=== PATIENT | male | born 1940 | race Caucasian/White ===

== ENCOUNTER → 2016-06-13 | Outpatient (CLI) | payer MEDICARE, OTHER ==
[~2016-06-13] MED LIST: ATOR10TA82 PO; INSUINJ4 SQ; LISI40TA PO; PANT40TA PO
[2016-06-13 11:11] LABS: BASO % 0.3 %; BASO ABS # 0.03 K/uL (0-0.2); COMPLETE YES; EOS % 1.1 %; HEMATOCRIT 38.2 % (42-52); IG% 0.3 %; LYMPH % 13.1 %; MEAN CORPUSCULAR HEMOGLOBIN 31.1 pg (25-34); MEAN CORPUSCULAR HGB CONC 35.3 g/dl (32-36); MEAN PLATELET VOLUME 10.1 fL (7.4-10.4); MONO % 9.3 %; NEUT % 75.9 %; PLATELET COUNT 231 K/uL (130-400); RED BLOOD COUNT 4.34 M/uL (4.7-6.1); WHITE BLOOD COUNT 9.92 K/uL (4.8-10.8)
[2016-06-13 11:29] LABS: ESTIMATED AVERAGE GLUCOSE 197 mg/dl; HA1C FLAG Normal (Normal)
[2016-06-13 11:44] LABS: ALT/SGPT 55 U/L (12-78); BLOOD UREA NITROGEN 23 mg/dl (7-18); BUN/CREATININE RATIO 13.5 (10-20); CALCIUM 8.7 mg/dl (8.5-10.1); CARBON DIOXIDE 24 mmol/L (21-32); CHLORIDE 105 mmol/L (98-107); CHOLESTEROL 92 mg/dl (0-200); GLUCOSE 97 mg/dl (70-99); MAGNESIUM 2.1 mg/dl (1.8-2.4); POTASSIUM 4.3 mmol/L (3.5-5.1); SODIUM 138 mmol/L (136-145)
[2016-06-13 11:47] LABS: ALB/GLOB RATIO 1.1 (0.9-2); ALKALINE PHOSPHATASE 62 U/L (45-117); AST/SGOT 37 U/L (15-37); HDL CHOLESTEROL 45 mg/dl; LDL CHOLESTEROL CALCULATED 23 mg/dl; PHOSPHORUS 3.8 mg/dl (2.5-4.9); TRIGLYCERIDES 122 mg/dl (0-150); VERY LOW DENSITY LIPOPROT CALC 24 mg/dl
== END | disposition home or self-care (01) ==
LOC: C.LAB1850 10:16
PROVIDERS: ATTEND Internal Medicine Geriatric Medicine
DX: I12.9 Hypertensive chronic kidney disease with stage 1 through stage 4 chronic kidney disease, or unspecified chronic kidney disease (principal); E11.29 Type 2 diabetes mellitus with other diabetic kidney complication; E55.9 Vitamin D deficiency, unspecified; N18.3 Chronic kidney disease, stage 3 (moderate)

== ENCOUNTER → 2016-07-15 | Outpatient (CLI) | payer OTHER ==
[~2016-07-15] MED LIST changes: -ATOR10TA82 PO; +ATOR10TA88 PO
[2016-07-15 18:15] LABS: BLOOD UREA NITROGEN 24 mg/dl (7-18); BUN/CREATININE RATIO 13.8 (10-20); CALCIUM 8.7 mg/dl (8.5-10.1); CARBON DIOXIDE 24 mmol/L (21-32); CHLORIDE 103 mmol/L (98-107); GLUCOSE 236 mg/dl (70-99); PHOSPHORUS 3.4 mg/dl (2.5-4.9); POTASSIUM 4.7 mmol/L (3.5-5.1); SODIUM 137 mmol/L (136-145)
== END | disposition home or self-care (01) ==
LOC: C.LABPBG 13:42
PROVIDERS: ATTEND Internal Medicine Geriatric Medicine
DX: N18.3 Chronic kidney disease, stage 3 (moderate) (principal)

== ENCOUNTER → 2017-06-19 | Outpatient (CLI) | payer OTHER ==
[~2017-06-19] MED LIST changes: +ATOR10TA82 PO; -ATOR10TA88 PO
[2017-06-19 17:46] LABS: BASO % 0.3 %; BASO ABS # 0.03 K/uL (0-0.2); EOS % 1.8 %; EOS ABS # 0.19 K/uL (0-0.5); HEMATOCRIT 39.8 % (42-52); HEMOGLOBIN 13.2 g/dL (14.0-18.0); IG# 0.05 K/uL (0.00-0.02); LYMPH % 14.9 %; LYMPH ABS # 1.61 K/uL (1.2-3.4); MEAN CELL VOLUME 89.8 fL (80-100); MEAN CORPUSCULAR HEMOGLOBIN 29.8 pg (25-34); MEAN CORPUSCULAR HGB CONC 33.2 g/dl (32-36); MEAN PLATELET VOLUME 10.3 fL (7.4-10.4); MONO % 7.8 %; MONO ABS # 0.84 K/uL (0.11-0.59); NEUT % 74.7 %; NEUT ABS # 8.09 K/uL (1.4-6.5); PLATELET COUNT 251 K/uL (130-400); RED CELL DISTRIBUTION WIDTH CV 13.7 % (11.5-14.5); RED CELL DISTRIBUTION WIDTH SD 44.8 fL (36.4-46.3); WHITE BLOOD COUNT 10.81 K/uL (4.8-10.8)
[2017-06-19 18:06] LABS: ALBUMIN 3.7 gm/dl (3.4-5.0); ALT/SGPT 47 U/L (12-78); AST/SGOT 37 U/L (15-37); BLOOD UREA NITROGEN 28 mg/dl (7-18); CALCIUM 8.7 mg/dl (8.5-10.1); CARBON DIOXIDE 26 mmol/L (21-32); CREATININE 1.83 mg/dl (0.60-1.40); GLUCOSE 234 mg/dl (70-99); POTASSIUM 4.9 mmol/L (3.5-5.1); SODIUM 132 mmol/L (136-145)
[2017-06-19 18:08] LABS: ALKALINE PHOSPHATASE 70 U/L (45-117); TOTAL PROTEIN 7.9 gm/dl (6.4-8.2)
[2017-06-20 07:04] LABS: HEMOGLOBIN A1C 7.3 % (4.5-5.6)
== END | disposition home or self-care (01) ==
LOC: C.LABPBG 12:11
PROVIDERS: ATTEND Internal Medicine Geriatric Medicine
DX: I12.9 Hypertensive chronic kidney disease with stage 1 through stage 4 chronic kidney disease, or unspecified chronic kidney disease (principal); D64.9 Anemia, unspecified; E11.29 Type 2 diabetes mellitus with other diabetic kidney complication; G31.84 Mild cognitive impairment of uncertain or unknown etiology; N18.3 Chronic kidney disease, stage 3 (moderate)

== ENCOUNTER 2020-11-09 09:52 | Inpatient (IN) ==
[2020-11-09] MEDS ORDERED: SIMETHICONE 80 MG CHEW PO STA (10:39)
[2020-11-09 11:05] LABS: Basophils # (auto) 0.01 K/uL (0-0.2); Basophils % (auto) 0.1 %; Hematocrit (blood only) 40.4 % (42-52); Immature Granulocytes # (auto) 0.04 K/uL (0.00-0.02); Immature Granulocytes % (auto) 0.2 %; Lymphocytes # (auto) 1.07 K/uL (1.2-3.4); Lymphocytes % (auto) 6.2 %; Mean Corpuscular Hemoglobin 31.2 pg (25-34); Mean Corpuscular Hgb Conc 34.7 g/dL (32-36); Mean Platelet Volume 9.7 fL (7.4-10.4); Monocytes # (auto) 0.68 K/uL (0.11-0.59); Monocytes % (auto) 3.9 %; Neutrophils # (auto) 15.57 K/uL (1.4-6.5); Neutrophils % (auto) 89.6 %; Platelet Count 242 K/uL (130-400); RDW Coefficient of Variation 12.8 % (11.5-14.5); RDW Standard Deviation 41.8 fL (36.4-46.3); Red Blood Count 4.49 M/uL (4.7-6.1); White Blood Count 17.37 K/uL (4.8-10.8)
[2020-11-09 11:22] LABS: Alanine Aminotransferase 35 U/L (12-78); Albumin Level 4.1 gm/dl (3.4-5.0); Aspartate Aminotransferase 31 U/L (15-37); BUN Creatinine Ratio 13.9 (10-20); Blood Urea Nitrogen 25 mg/dl (7-18); Carbon Dioxide 29 mmol/L (21-32); Chloride 97 mmol/L (98-107); Creatinine Clr Calc Pharmacy 29.2 ml/min; Est GFR (African American) 40.3 ml/min; Est GFR (Non-African American) 34.8 ml/min; Glucose 231 mg/dl (70-99); Lipase 153 U/L (73-393); Potassium 4.5 mmol/L (3.5-5.1); Sodium 133 mmol/L (136-145)
[2020-11-09 11:27] LABS: Alkaline Phosphatase 74 U/L (45-117); Total Protein 8.1 gm/dl (6.4-8.2); Troponin I < 0.015 ng/ml (0-0.045)
--- NOTE | 2020-11-09 11:31 | CT Scan Report ---
CT OF THE ABDOMEN AND PELVIS WITHOUT CONTRAST CLINICAL HISTORY: abd pain, distention - h/o small bowel stricture COMPARISON STUDY: CT of the abdomen and pelvis August 23, 2015. Small bowel follow-through August 25, 2015. TECHNIQUE: Axial images of the abdomen and pelvis were obtained without IV contrast. Images were revi ewed in the axial, sagittal, and coronal planes. Automated exposure control was utilized for the meena dy. A dose lowering technique was utilized adhering to the principles of ALARA. FINDINGS: No pneumatosis, free air or portal venous gas is present. The stomach is fluid-filled and m oderately distended. Evaluation of the abdomen and pelvis is suboptimal on this unenhanced exam. Unen hanced images of the liver, spleen, adrenal glands and pancreas are unremarkable. There is no biliary or pancreatic ductal dilatation. The majority of the small bowel is moderately dilated and fluid-aditi led. Note is made of a transition point within the distal ileum, within the right lower quadrant on a xial image 308 of 461. Just proximal to the transition point, there is an apparent 1.7 cm slightly hy perdense intraluminal focus. Apparent wall thickening of the slightly more upstream small bowel is pr obably due to peristalsis. There is trace interloop ascites. The appendix is unremarkable. No lymphad enopathy is present. No acute fracture or suspicious lesion is identified within the visualized skele bradley structures. There is no hydronephrosis. Water attenuation left renal lesions favor cysts. IMPRESSION: 1. Findings consistent with a small bowel obstruction with transition point within the distal ileum. Apparent 1.7 cm intraluminal hyperdense focus just proximal to the transition point may reflect stool or other bowel contents. Trace ascites. 2. Fluid-filled distended stomach. ACT 112: Negative or not required by law. Electronically signed by: Peewee Villegas M.D. 11/09/2020 11:30 AM
--- NOTE | 2020-11-09 11:43 | Communication Note ---
Date of Service: November 09, 2020 This patient was seen in concert with Dr. Navarrete and we discussed and agreed upon the history, physical, assessment, and plan. See attending's note for ct perdomo. Resident Activity Tracking Resident Involvement: Resident Care Provided Care Provided: Adult ED
--- NOTE | 2020-11-09 12:16 | Emergency Department Note ---
History of Present Illness General Chief complaint: GI Assessment Stated complaint: PROBABLE BOWEL OBSTRUCTION,HX OF,BLOATING,VOM,PAIN Time Seen by Provider: 11/09/20 10:06 Source: patient Mode of arrival: EMS Limitations: no limitations History of Present Illness Provider complaint: Abdominal pain Maximum Pain Intensity: 8 This is an 80-year-old male who presents to the ED with a chief complaint of abdominal distention as well as some diffuse achiness in his abdomen. He reports nausea and vomiting x1 yesterday. He is passing some gas. His last bowel movement was reportedly this morning. 2 days ago he had similar symptoms and felt a little better after a bowel movement. He states that he has been eating okay up until the last 24 hours. He did try some milk of magnesia last night which did not help. He does report a history of bowel obstruction. No previous abdominal surgeries. Home Medications Medication Instructions Recorded Confirmed Type blood-glucose meter #1 ea 02/15/19 07/28/20 History blood sugar diagnostic #100 ea 07/05/19 07/28/20 Rx pen needle, diabetic 31 gauge x #90 ea 08/30/19 07/28/20 Rx 5/16" pen needle, diabetic 32 gauge x #300 ea 08/31/19 07/28/20 Rx 5/32" atorvastatin 10 mg PO QAM 11/09/20 11/09/20 History cholecalciferol (vitamin D3) 4,000 units PO QAM 11/09/20 11/09/20 History insulin glargine [Lantus Solostar 40 unit SQ QAM 11/09/20 11/09/20 History U-100 Insulin] lisinopril 40 mg PO QAM 11/09/20 11/09/20 History magnesium hydroxide [Milk of 5 ml PO DAILY PRN 11/09/20 11/09/20 History Magnesia] multivitamin 1 tab PO QAM 11/09/20 11/09/20 History Allergies Allergy/AdvReac Type Severity Reaction Status Date / Time No Known Drug Allergies Allergy Verified 11/09/20 11:10 Past Med/Surg History Medical History (Updated 11/09/20 @ 12:18 by Terrell Navarrete DO) Anemia Benign enlargement of prostate Chronic kidney disease, stage 3 (moderate) Chronic osteoarthritis Diabetes mellitus with renal complications Diverticula of colon Dyslipidemia History of duodenal ulcer Hypertension Internal hemorrhoid Mild cognitive impairment Pulmonary nodules Tubular adenoma of colon Type 2 diabetes mellitus Vitamin D deficiency Surgical History H/O excision of mass (03/2016) endoscopy mucosal resection 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) Status post right knee replacement (2008) Family History Uncle Bleeding ulcer Mother Bleeding ulcer Hypertension Brother Drowned Family/Other Colon cancer Father Drowned Denies family history of Ovarian cancer Prostate cancer Myocardial infarction Breast cancer Colorectal cancer Social History Smoking Status: Former smoker Tobacco Type: Cigarettes Age Started Using Tobacco: 19; Age Quit Using Tobacco: 26; packs per day: 1; Second Hand Exposure: No; Hx Alcohol Use: No Hx Substance Use: No Preferred Language: [place] Communication Ability: Effective Visual Impairment: No Limitations Hearing Ability: Normal Cleaning Specialist Required: No Beliefs That Will Affect Care: None marital status: Current Living Situation: Spouse current occupational status: retired How many Children do You have: 2 Feels Safe at Home: Yes Childhood Exposure to Second-Hand Smoke: No caffeine: No (Tea x 3-4 per day. Cold tea 2-3 a day. ) during the past year weight has: remained stable Dental Care, Regularly: No Physical Activity Frequency: 3-4 Times per Week Physical Activity Frequency Comment: walking Seatbelt Use: always Sunscreen Use: No Review of Systems A total of 10 systems reviewed and were otherwise negative Physical Exam Vital Signs Vital Signs - 24 hr 11/09/20 10:05 11/09/20 10:19 11/09/20 11:14 Temperature 36.8 C Temperature Source Temporal Artery Scan Pulse Rate 87 74 70 Pulse Rate from SpO2 Sensor 74 70 Pulse Rhythm Regular Respiratory Rate 18 14 21 Respiratory Effort / Characteristics Non-Labored Spontaneous Respiratory Depth Normal Respiratory Pattern Regular Blood Pressure 162/77 H 161/79 H 158/81 H Blood Pressure Mean 105 106 106 Blood Pressure Position Sitting Pulse Oximetry 98 98 98 Oxygen Delivery Method Room Air Room Air Sepsis Recent Fever Within 48 Hours No Sepsis New/Unexplained Change in Mental Status N/A Sepsis Action Taken by Nursing No Action Required CONSTITUTIONAL/VITAL SIGNS: Reviewed / noted above. GENERAL: Non-toxic in appearance. INTEGUMENTARY: Warm, dry, and Dasher. HEAD: Normocephalic. EYES: without scleral icterus or trauma. ENT/OROPHARYNX: clear and moist. LYMPHADENOPATHY/NECK: Is supple without lymphadenopathy or meningismus. RESPIRATORY: Lungs clear and equal. CARDIOVASCULAR: Regular rate and rhythm. GI/ABDOMEN: Soft and distended and mildly tender and tympanic. Diminished bowel sounds. EXTREMITIES: Warm and well perfused. BACK: No CVA tenderness. NEUROLOGICAL: Intact without focal deficits. PSYCHIATRIC: normal affect. MUSCULOSKELETAL: Normally developed with good muscle tone. TRIAGE NURSING DOCUMENTATION REVIEWED. Course Administered Medications Discontinued Medications Simethicone (Simethicone 80 Mg Chew) 80 mg PO NOW STA Stop: 11/09/20 10:40 Last Admin: 11/09/20 11:20 Dose: 80 mg Documented by: [id number] Medical Decision Making Differential Diagnosis Differential considered: pancreatitis, hepatitis, acute cholecystitis, AAA, UTI, pyelonephritis, kidney stones, appendicitis, diverticulitis, shingles, bowel obstruction, mesenteric ischemia, intussusception,hernia, testicular torsion. Medical Records Attestation: I reviewed the patient's medical records. Home Medications Current Medication List: was personally reviewed by me Laboratory Data Attestation: I reviewed the patient's lab results. Result diagrams: 11/09/20 10:57 11/09/20 10:57 Lab Results 11/09/20 11/09/20 Range/Units 10:57 10:57 WBC 17.37 H (4.8-10.8) K/uL RBC 4.49 L (4.7-6.1) M/uL Hgb 14.0 (14.0-18.0) g/dL Hct 40.4 L (42-52) % MCV 90.0 (80-100) fL MCH 31.2 (25-34) pg MCHC 34.7 (32-36) g/dL RDW Std Deviation 41.8 (36.4-46.3) fL RDW Coeff of Patricia 12.8 (11.5-14.5) % Plt Count 242 (130-400) K/uL MPV 9.7 (7.4-10.4) fL Immature Gran % (Auto) 0.2 % Neut % (Auto) 89.6 % Lymph % (Auto) 6.2 % Ransom % (Auto) 3.9 % Eos % (Auto) 0.0 % Baso % (Auto) 0.1 % Neut # (Auto) 15.57 H (1.4-6.5) K/uL Lymph # (Auto) 1.07 L (1.2-3.4) K/uL Ransom # (Auto) 0.68 H (0.11-0.59) K/uL Eos # (Auto) 0.00 (0-0.5) K/uL Baso # (Auto) 0.01 (0-0.2) K/uL Immature Gran # (Auto) 0.04 H (0.00-0.02) K/uL Sodium 133 L (136-145) mmol/L Potassium 4.5 (3.5-5.1) mmol/L Chloride 97 L (98-107) mmol/L Carbon Dioxide 29 (21-32) mmol/L Anion Gap 7.0 (3-11) BUN 25 H (7-18) mg/dl Creatinine 1.79 H (0.6-1.4) mg/dl Est Cr Clr Drug Dosing 29.2 ml/min Est GFR ( Amer) 40.3 ml/min Est GFR (Non-Af Amer) 34.8 ml/min BUN/Creatinine Ratio 13.9 (10-20) Glucose 231 H (70-99) mg/dl Calcium 9.0 (8.5-10.1) mg/dl Total Bilirubin 1.0 (0.2-1) mg/dl AST 31 (15-37) U/L ALT 35 (12-78) U/L Alkaline Phosphatase 74 (45-117) U/L Troponin I < 0.015 (0-0.045) ng/ml Total Protein 8.1 (6.4-8.2) gm/dl Albumin 4.1 (3.4-5.0) gm/dl Globulin 4.0 (2.5-4.0) gm/dl Albumin/Globulin Ratio 1.0 (0.9-2) Lipase 153 (73-393) U/L Imaging Data Radiologist's Impression: Abdomen/Pelvis CT 11/09/20 10:39 CT OF THE ABDOMEN AND PELVIS WITHOUT CONTRAST CLINICAL HISTORY: abd pain, distention - h/o small bowel stricture COMPARISON STUDY: CT of the abdomen and pelvis August 23, 2015. Small bowel follow-through August 25, 2015. TECHNIQUE: Axial images of the abdomen and pelvis were obtained without IV cont rast. Images were reviewed in the axial, sagittal, and coronal planes. Automated exposure control was utilized for the study. A dose lowering technique was utilized adhering to the principles of ALARA. FINDINGS: No pneumatosis, free air or portal venous gas is present. The stomach is fluid-filled and moderately distended. Evaluation of the abdomen and pelvis is suboptimal on this unenhanced exam. Unenhanced images of the liver, spleen, adrenal glands and pancreas are unremarkable. There is no biliary or pancreatic ductal dilatation. The majority of the small bowel is moderately dilated and fluid-filled. Note is made of a transition point within the distal ileum, within the right lower quadrant on axial image 308 of 461. Just proximal to the transition point, there is an apparent 1.7 cm slightly hyperdense intraluminal focus. Apparent wall thickening of the slightly more upstream small bowel is probably due to peristalsis. There is trace interloop ascites. The appendix is unremarkable. No lymphadenopathy is present. No acute fracture or suspicious lesion is identified within the visualized skeletal structures. There is no hydronephrosis. Water attenuation left renal lesions favor cysts. IMPRESSION: 1. Findings consistent with a small bowel obstruction with transition point within the distal ileum. Apparent 1.7 cm intraluminal hyperdense focus just proximal to the transition point may reflect stool or other bowel contents. Trace ascites. 2. Fluid-filled distended stomach. ACT 112: Negative or not required by law. Electronically signed by: Peewee Villegas M.D. 11/09/2020 11:30 AM MDM Narrative Patient presents with abdominal distention abdominal discomfort as detailed above. His white blood cell count is 17. BUN is 25 and creatinine is 1.79. Glucose 231. Lipase was negative. The CT scan shows a small bowel obstruction as detailed above. I did speak with Dr. Leggett from general surgery. He will see the patient in consultation. The patient will be admitted to the medicine service. An NG tube was ordered. The patient was given simethicone 80 mg p.o. prior to the x-ray. Impression & Plan SBO (small bowel obstruction) Discharge Plan Visit Data Chief Complaint: GI Assessment Stated Complaint: PROBABLE BOWEL OBSTRUCTION,HX OF,BLOATING,VOM,PAIN ED Provider: Terrell Navarrete ED Midlevel Provider: Jatinder Nation Discharge Problem: SBO (small bowel obstruction) Patient Disposition: Being Evaluated by Hospitalist Forms Stand Alone Forms: Sheryl FigCard Prescriptions Prescriptions: No Action (DME) pen needle, diabetic [Pen Needle] 31 gauge x 5/16" needle See Dose Instructions .ROUTE .MEDSUPPLY Qty: 90 RF: 1 (DME) pen needle, diabetic [BD Ultra-Fine Sheron Pen Needle] 32 gauge x 5/32" needle See Rx Instructions .ROUTE .MEDSUPPLY Qty: 300 RF: 1 (DME) blood-glucose meter [OneTouch Ultra2 Meter] kit See Dose Instructions .ROUTE .MEDSUPPLY Qty: 1 RF: 0 (DME) OneTouch Ultra Blue Test Strip Strip See Dose Instructions .ROUTE .MEDSUPPLY Qty: 100 RF: 5 magnesium hydroxide [Milk of Magnesia] 400 mg/5 mL Suspension 5 ml PO DAILY PRN (Reason: gastric upset) RF: 0 multivitamin tablet 1 tab PO QAM RF: 0 atorvastatin 10 mg tablet 10 mg PO QAM RF: 0 lisinopril 40 mg tablet 40 mg PO QAM RF: 0 Lantus Solostar U-100 Insulin 100 unit/mL (3 mL) insulin pen 40 unit SQ QAM RF: 0 cholecalciferol (vitamin D3) 2,000 unit capsule 4,000 units PO QAM RF: 0 Referrals Referrals: Jamila Alfred DO [Primary Care Provider] -
[2020-11-09] MEDS ORDERED: LORazepam 0.5 MG/1 ML VIAL IV STA (12:17)
--- NOTE | 2020-11-09 12:54 | History & Physical Report ---
Date of Service November 09, 2020 Assessment & Plan (1) SBO (small bowel obstruction): Small bowel obstruction- Most recent was in February 2019, which resolved spontaneously This was likely brought on by dietary intake of corn and beans and inadequate hydration Transition point ND distal ileum Continue NG tube to low intermittent suction Zofran 4 mg IV every 6 hours as needed Famotidine 20 mg IV every 12 hours Zosyn 3.375 mg IV every 8 hours Consult general surgery Dr. Leggett Present on Admission?: Yes (2) Dyslipidemia: Hold atorvastatin Present on Admission?: Yes (3) Diabetes mellitus with renal complications: Reduce insulin glargine from 40 to 20 units subcu every morning Placed on Accu-Cheks before meals and at bedtime with NovoLog coverage per scale Check hemoglobin A1c Present on Admission?: Yes (4) Benign enlargement of prostate: Not on any outpatient medications, will need to follow urine output while being hydrated with IV fluids Present on Admission?: Yes (5) Hypertension: Hold lisinopril Present on Admission?: Yes History of Present Illness Chief Complaint: The patient presents to the emergency department with 2 days of worsening abdominal pain and distention, similar to his most recent small bowel obstruction in February 2019 Primary Care Provider: Jamila Alfred DO The patient is a 80-year-old male past medical history including small bowel obstruction, dyslipidemia, anemia, BPH, chronic osteoarthritis, diabetes mellitus with renal complications, duodenal ulcer, hypertension, mild cognitive impairment, pulmonary nodules, CKD stage III, diabetes mellitus type 2 and vitamin D deficiency. He presents with symptoms as noted above. Work-up in the emergency department included a CT scan of abdomen pelvis which showed a small bowel obstruction with transition point in the distal ileum, along with fluid- filled distended stomach. Patient had NG tube to low intermittent suction placed in the ED, with some improvement in symptoms. From a dietary perspective, patient had a large amount of corn a few days ago, and ate beans the following day Allergies Allergy/AdvReac Type Severity Reaction Status Date / Time No Known Drug Allergies Allergy Verified 11/09/20 11:10 Home Medications Medication Instructions Recorded Confirmed Type blood-glucose meter #1 ea 02/15/19 07/28/20 History blood sugar diagnostic #100 ea 07/05/19 07/28/20 Rx pen needle, diabetic 31 gauge x #90 ea 08/30/19 07/28/20 Rx 5/16" pen needle, diabetic 32 gauge x #300 ea 08/31/19 07/28/20 Rx 532" atorvastatin 10 mg PO QAM 11/09/20 11/09/20 History cholecalciferol (vitamin D3) 4,000 units PO QAM 11/09/20 11/09/20 History insulin glargine [Lantus Solostar 40 unit SQ QAM 11/09/20 11/09/20 History U-100 Insulin] lisinopril 40 mg PO QAM 11/09/20 11/09/20 History magnesium hydroxide [Milk of 5 ml PO DAILY PRN 11/09/20 11/09/20 History Magnesia] multivitamin 1 tab PO QAM 11/09/20 11/09/20 History Past Med/Surg History Medical History (Updated 11/09/20 @ 12:18 by Terrell Navarrete DO) Anemia Benign enlargement of prostate Chronic kidney disease, stage 3 (moderate) Chronic osteoarthritis Diabetes mellitus with renal complications Diverticula of colon Dyslipidemia History of duodenal ulcer Hypertension Internal hemorrhoid Mild cognitive impairment Pulmonary nodules Tubular adenoma of colon Type 2 diabetes mellitus Vitamin D deficiency Surgical History H/O excision of mass (03/2016) endoscopy mucosal resection 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) Status post right knee replacement (2008) Family History Uncle Bleeding ulcer Mother Bleeding ulcer Hypertension Brother Drowned Family/Other Colon cancer Father Drowned Denies family history of Ovarian cancer Prostate cancer Myocardial infarction Breast cancer Colorectal cancer Social History Smoking Status: Former smoker Tobacco Type: Cigarettes Age Started Using Tobacco: 19; Age Quit Using Tobacco: 26; packs per day: 1; Second Hand Exposure: No; Hx Alcohol Use: No Hx Substance Use: No Preferred Language: Tongan Communication Ability: Effective Visual Impairment: No Limitations Hearing Ability: Normal Exhibit Cleaner Required: No Beliefs That Will Affect Care: None marital status: Current Living Situation: Spouse current occupational status: retired How many Children do You have: 2 Feels Safe at Home: Yes Childhood Exposure to Second-Hand Smoke: No caffeine: No (Tea x 3-4 per day. Cold tea 2-3 a day. ) during the past year weight has: remained stable Dental Care, Regularly: No Physical Activity Frequency: 3-4 Times per Week Physical Activity Frequency Comment: walking Seatbelt Use: always Sunscreen Use: No Review of Systems Review of Systems: The patient denies chest pain, palpitations, shortness of breath, dyspnea on exertion, cough, lower extremity swelling, sore throat, fevers, chills, sweats, vomiting, diarrhea, blood in urine or stool, dysuria, urinary frequency or urgency, lightheadedness, dizziness, headache, memory loss, loss of consciousness, rash, abnormal bruising or bleeding, imbalance, focal or generalized weakness, numbness or tingling in arms or legs, generalized arthralgias or myalgias, back or neck pain, or night sweats. The review of systems is otherwise negative other than for that already noted above, and at least 10 systems have been reviewed. Physical Exam Physical Exam: The patient is awake, alert and oriented 3, well developed and well nourished, NGT to LIS draining brown fluid, sitting upright in bed and in no acute distress. HEENT--PERRL, EOMI, mucous membranes and oropharynx dry. Neck--supple. No JVD. No bruits. Thyroid normal, trachea midline, no adenopathy. Heart--normal S1 and S2. No murmurs, rubs or gallops. Lungs--clear bilaterally, no respiratory distress, no accessory muscle use. Abdomen--decreased bowel sounds. Moderately distended and nontender. Extremities--no cyanosis or clubbing. No edema. Dermatologic--normal skin turgor, normal color, no abnormal lymph nodes, no rash. Neurologic--cranial nerves II through XII grossly intact. Rheumatologic--normal range of motion. Psychiatric--normal affect. Results & Data Results & Data ([facility]) Vital Signs (Past 12 Hours) Vital Signs Temp Pulse Resp BP Pulse Ox 11/09/20 11:14 70 21 158/81 H 98 11/09/20 10:19 74 14 161/79 H 98 11/09/20 10:05 98.2 F 87 18 162/77 H 98 Laboratory Results Laboratory Results WBC 17.37 K/uL (4.8-10.8) H 11/09/20 10:57 RBC 4.49 M/uL (4.7-6.1) L 11/09/20 10:57 Hgb 14.0 g/dL (14.0-18.0) 11/09/20 10:57 Hct 40.4 % (42-52) L 11/09/20 10:57 MCV 90.0 fL (80-100) 11/09/20 10:57 MCH 31.2 pg (25-34) 11/09/20 10:57 MCHC 34.7 g/dL (32-36) 11/09/20 10:57 RDW Std Deviation 41.8 fL (36.4-46.3) 11/09/20 10:57 RDW Coeff of Patricia 12.8 % (11.5-14.5) 11/09/20 10:57 Plt Count 242 K/uL (130-400) 11/09/20 10:57 MPV 9.7 fL (7.4-10.4) 11/09/20 10:57 Immature Gran % (Auto) 0.2 % 11/09/20 10:57 Neut % (Auto) 89.6 % 11/09/20 10:57 Lymph % (Auto) 6.2 % 11/09/20 10:57 [place]oula % (Auto) 3.9 % 11/09/20 10:57 Eos % (Auto) 0.0 % 11/09/20 10:57 Baso % (Auto) 0.1 % 11/09/20 10:57 Neut # (Auto) 15.57 K/uL (1.4-6.5) H 11/09/20 10:57 Lymph # (Auto) 1.07 K/uL (1.2-3.4) L 11/09/20 10:57 [place] # (Auto) 0.68 K/uL (0.11-0.59) H 11/09/20 10:57 Eos # (Auto) 0.00 K/uL (0-0.5) 11/09/20 10:57 Baso # (Auto) 0.01 K/uL (0-0.2) 11/09/20 10:57 Immature Gran # (Auto) 0.04 K/uL (0.00-0.02) H 11/09/20 10:57 Sodium 133 mmol/L (136-145) L 11/09/20 10:57 Potassium 4.5 mmol/L (3.5-5.1) 11/09/20 10:57 Chloride 97 mmol/L (98-107) L 11/09/20 10:57 Carbon Dioxide 29 mmol/L (21-32) 11/09/20 10:57 Anion Gap 7.0 (3-11) 11/09/20 10:57 BUN 25 mg/dl (7-18) H 11/09/20 10:57 Creatinine 1.79 mg/dl (0.6-1.4) H 11/09/20 10:57 Est Cr Clr Drug Dosing 29.2 ml/min 11/09/20 10:57 Est GFR ( Amer) 40.3 ml/min 11/09/20 10:57 Est GFR (Non-Af Amer) 34.8 ml/min 11/09/20 10:57 BUN/Creatinine Ratio 13.9 (10-20) 11/09/20 10:57 Glucose 231 mg/dl (70-99) H 11/09/20 10:57 Calcium 9.0 mg/dl (8.5-10.1) 11/09/20 10:57 Total Bilirubin 1.0 mg/dl (0.2-1) 11/09/20 10:57 AST 31 U/L (15-37) 11/09/20 10:57 ALT 35 U/L (12-78) 11/09/20 10:57 Alkaline Phosphatase 74 U/L (45-117) 11/09/20 10:57 Troponin I < 0.015 ng/ml (0-0.045) 11/09/20 10:57 Total Protein 8.1 gm/dl (6.4-8.2) 11/09/20 10:57 Albumin 4.1 gm/dl (3.4-5.0) 11/09/20 10:57 Globulin 4.0 gm/dl (2.5-4.0) 11/09/20 10:57 Albumin/Globulin Ratio 1.0 (0.9-2) 11/09/20 10:57 Lipase 153 U/L (73-393) 11/09/20 10:57 COVID-19 Eval Order Covid19 at [facility] 11/09/20 12:05 Impressions Abdomen/Pelvis CT 11/09/20 10:39 CT OF THE ABDOMEN AND PELVIS WITHOUT CONTRAST CLINICAL HISTORY: abd pain, distention - h/o small bowel stricture COMPARISON STUDY: CT of the abdomen and pelvis August 23, 2015. Small bowel follow-through August 25, 2015. TECHNIQUE: Axial images of the abdomen and pelvis were obtained without IV contrast. Images were reviewed in the axial, sagittal, and coronal planes. Automated exposure control was utilized for the study. A dose lowering technique was utilized adhering to the principles of ALARA. FINDINGS: No pneumatosis, free air or portal venous gas is present. The stomach is fluid-filled and moderately distended. Evaluation of the abdomen and pelvis is suboptimal on this unenhanced exam. Unenhanced images of the liver, spleen, adrenal glands and pancreas are unremarkable. There is no biliary or pancreatic ductal dilatation. The majority of the small bowel is moderately dilated and fluid-filled. Note is made of a transition point within the distal ileum, within the right lower quadrant on axial image 308 of 461. Just proximal to the transition point, there is an apparent 1.7 cm slightly hyperdense intraluminal focus. Apparent wall thickening of the slightly more upstream small bowel is probably due to peristalsis. There is trace interloop ascites. The appendix is unremarkable. No lymphadenopathy is present. No acute fracture or suspicious lesion is identified within the visualized skeletal structures. There is no hydronephrosis. Water attenuation left renal lesions favor cysts. IMPRESSION: 1. Findings consistent with a small bowel obstruction with transition point within the distal ileum. Apparent 1.7 cm intraluminal hyperdense focus just proximal to the transition point may reflect stool or other bowel contents. Trace ascites. 2. Fluid-filled distended stomach. ACT 112: Negative or not required by law. Electronically signed by: Peewee Villegas M.D. 11/09/2020 11:30 AM Code Status & VTE Plan Code Status Full code VTE Prophylaxis Plan VTE Prophylaxis will be ordered: Yes PG Care Time/CCT Total # of Minutes Spent Total Time Spent with Patient: Total time spent is greater than 50% in coordination of care (as documented) at patient's floor/unit and/or counseling patient: Coding Level of Care Code 74865 Initial Inpt Care Lvl 3 Diagnoses SBO (small bowel obstruction) K56.609 Dyslipidemia E78.5 Diabetes mellitus with renal complications E11.29 Benign enlargement of prostate N40.0 Hypertension I10
--- NOTE | 2020-11-09 13:30 | Surgery Consultation ---
Date of Consultation November 09, 2020 Assessment & Plan (1) SBO (small bowel obstruction): This is an 80yM with a PMH of DM2, CKD, BPH, who presents to the [facility] ED on 11/09/20 with complaints of abdominal pain and nausea/vomiting since Friday. In the ER patient underwent a CT a/p that revealed findings consistent with a small bowel obstruction with transition point within the distal ileum. Apparent 1.7 cm intraluminal hyperdense focus just proximal to the transition point may reflect stool or other bowel contents. WBC 17. VSS. On examination patient's abdomen is softly distended with ttp in the RLQ region. Patient has a history of SBO all managed conservatively in the past. 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 He has not been able to follow up regarding this due to the Covid pandemic. At this time we will recommend supportive care, NPO with NGT for decompression and bowel rest. No plans for acute surgical intervention at this time. We will continue to follow closely. May need attention towards area of stricture in the future. as above. states this is probably his 14th or 15th episode of this. would like to f/u at [place] as previously discussed to attempt endoscopic dilation. these episodes generally improve with conservative management. NGT in place/npo/ivf. will follow along. no urgent indication for surgery. History of Present Illness History of Present Illness This is an 80yM with a PMH of DM2, CKD, BPH, who presents to the [facility] ED on 11/09/20 with complaints of abdominal pain and nausea/vomiting. The patient reports his abdominal pain/bloating started this past Friday, where he ultimately developed nausea and vomiting in the evening. He felt somewhat better on Friday and ate spaghetti for supper when his symptoms returned. He woke up this AM with ongoing abdominal pain (rating it an 8/10 in severity) so he decided to come into the ER for further evaluation. In the ER patient underwent a CT a/p that revealed findings consistent with a small bowel obstruction with transition point within the distal ileum. Apparent 1.7 cm intraluminal hyperdense focus just proximal to the transition point may reflect stool or other bowel contents. Patient reports having multiple episodes of bowel obstruction in the past dating back to ~12-15 years ago, only one requiring hospitalization. He and his significant other say he tries to self manage them on his own with bowel rest which has worked for them. Patient denies any abdominal surgical history, he did have a mass removed in the cecum via colonoscopy in 2015. Patient's most recent colonoscopy was performed in 07/2019 where he was diagnosed with a stricture of the terminal ileum which was unable to be traversed, biopsies taken were negative. Patient reports there was hope for it to be dilated endoscopically at [place], but due to the Covid pandemic he was unable to follow up on this. Allergies Allergy/AdvReac Type Severity Reaction Status Date / Time No Known Drug Allergies Allergy Verified 11/09/20 11:10 Home Medications Medication Instructions Recorded Confirmed Type blood-glucose meter #1 ea 02/15/19 07/28/20 History blood sugar diagnostic #100 ea 07/05/19 07/28/20 Rx pen needle, diabetic 31 gauge x #90 ea 08/30/19 07/28/20 Rx 5/16" pen needle, diabetic 32 gauge x #300 ea 08/31/19 07/28/20 Rx 5/32" atorvastatin 10 mg PO QAM 11/09/20 11/09/20 History cholecalciferol (vitamin D3) 4,000 units PO QAM 11/09/20 11/09/20 History insulin glargine [Lantus Solostar 40 unit SQ QAM 11/09/20 11/09/20 History U-100 Insulin] lisinopril 40 mg PO QAM 11/09/20 11/09/20 History magnesium hydroxide [Milk of 5 ml PO DAILY PRN 11/09/20 11/09/20 History Magnesia] multivitamin 1 tab PO QAM 11/09/20 11/09/20 History Patient History Medical History Anemia Benign enlargement of prostate Chronic kidney disease, stage 3 (moderate) Chronic osteoarthritis Diabetes mellitus with renal complications Diverticula of colon Dyslipidemia History of duodenal ulcer Hypertension Internal hemorrhoid Mild cognitive impairment Pulmonary nodules Tubular adenoma of colon Type 2 diabetes mellitus Vitamin D deficiency Surgical History H/O excision of mass (03/2016) endoscopy mucosal resection 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) Status post right knee replacement (2008) Family History Uncle Bleeding ulcer Mother Bleeding ulcer Hypertension Brother Drowned Family/Other Colon cancer Father Drowned Denies family history of Ovarian cancer Prostate cancer Myocardial infarction Breast cancer Colorectal cancer Social History Smoking Status: Former smoker Tobacco Type: Cigarettes Age Started Using Tobacco: 19; Age Quit Using Tobacco: 26; packs per day: 1; Second Hand Exposure: No; Hx Alcohol Use: No Hx Substance Use: No Preferred Language: American Communication Ability: Effective Visual Impairment: No Limitations Hearing Ability: Normal 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 Cold tea 2-3 a day. ) during the past year weight has: remained stable Dental Care, Regularly: No Physical Activity Frequency: 3-4 Times per Week Physical Activity Frequency Comment: walking Seatbelt Use: always Sunscreen Use: No Review of Systems Constitutional: + sweats (on friday); no fever and no chills Respiratory: no dyspnea Cardiovascular: no chest pain Gastrointestinal: + abdominal pain, + bloating, + nausea and + vomiting no gas/BM since yesterday Physical Exam Physical Exam: awake Constitutional: no acute distress Respiratory: normal respiratory effort Gastrointestinal (Abdomen): Inspection/Auscultation: + abdomen distended Percussion/Palpation: + abdomen tender (ttp towards RLQ) and abdomen soft Results & Data ([facility]) Vital Signs (Past 12 Hours) Vital Signs Temp Pulse Resp BP Pulse Ox 11/09/20 11:14 70 21 158/81 H 98 11/09/20 10:19 74 14 161/79 H 98 11/09/20 10:05 36.8 C 87 18 162/[address] OF THE ABDOMEN AND PELVIS WITHOUT CONTRAST CLINICAL HISTORY: abd pain, distention - h/o small bowel stricture COMPARISON STUDY: CT of the abdomen and pelvis August 23, 2015. Small bowel follow-through August 25, 2015. TECHNIQUE: Axial images of the abdomen and pelvis were obtained without IV contrast. Images were reviewed in the axial, sagittal, and coronal planes. Automated exposure control was utilized for the study. A dose lowering te chnique was utilized adhering to the principles of ALARA. FINDINGS: No pneumatosis, free air or portal venous gas is present. The stomach is fluid-filled and moderately distended. Evaluation of the abdomen and pelvis is suboptimal on this unenhanced exam. Unenhanced images of the liver, spleen, adrenal glands and pancreas are unremarkable. There is no biliary or pancreatic ductal dilatation. The majority of the small bowel is moderately dilated and fluid-filled. Note is made of a transition point within the distal ileum, within the right lower quadrant on axial image 308 of 461. Just proximal to the transition point, there is an apparent 1.7 cm slightly hyperdense intraluminal focus. Apparent wall thickening of the slightly more upstream small bowel is probably due to peristalsis. There is trace interloop ascites. The appendix is unremarkable. No lymphadenopathy is present. No acute fracture or suspicious lesion is identified within the visualized skeletal structures. There is no hy dronephrosis. Water attenuation left renal lesions favor cysts. IMPRESSION: 1. Findings consistent with a small bowel obstruction with transition point within the distal ileum. Apparent 1.7 cm intraluminal hyperdense focus just proximal to the transition point may reflect stool or other bowel contents. Trace ascites. 2. Fluid-filled distended stomach. ACT 112: Negative or not required by law. Electronically signed by: Peewee Villegas M.D. 11/09/2020 11:30 AM PG Care Time/CCT Total # of Minutes Spent Total Time Spent with Patient: Total time spent is greater than 50% in coordination of care (as documented) at patient's floor/unit and/or counseling patient: Coding Level of Care Code 02021 Initial Inpt Care Lvl 3 Diagnoses SBO (small bowel obstruction) K56.609
[2020-11-09] MEDS ORDERED: GLUCOSE 10 TABS/TUBE PO PRN (15:08)
[2020-11-09] MEDS ORDERED: ONDANSETRON INJ 2 MG/ML 2 ML VIAL IV PRN (15:08)
[2020-11-09] MEDS ORDERED: GLUCOSE 40% GEL 15 GM TUBE PO PRN (15:08)
[2020-11-09] MEDS ORDERED: GLUCAGON FOR INJ 1 MG VIAL SQ PRN (15:08)
[2020-11-09] MEDS ORDERED: DEXTROSE 50% 50 ML SYRINGE IV PRN (15:08)
[2020-11-09] MEDS ORDERED: CARBOHYDRATES FOR HYPOGLYCEMIA PO PRN (15:08)
[2020-11-09] MEDS ORDERED: PIPERACILL/TAZOBAC CONSULT ACTIVE PRN (15:08)
[2020-11-09] MEDS ORDERED: PIPERACILLIN/TAZOBACTAM 3.375 GM in DEXTROSE 5% 100 ML IV ONE (15:30)
[2020-11-09] MEDS: SODIUM CHLORIDE 0.9% 1000ML 1,000 ML IV SCH (15:41)
[2020-11-09] MEDS ORDERED: INSULIN ASPART 100 UNITS/ML 3 ML PEN SC SCH (16:30)
[2020-11-09] MEDS ORDERED: COUGH DROP (SUGAR FREE) LOZ 24 LOZ/1 BOX BUCCAL PRN (16:44)
[2020-11-09 17:53] LABS: Appearance Urine Clear (Clear); Bacteria Urine Automated Negative (Negative); Bilirubin Urine Negative (Negative); Blood Urine Negative (Negative); Color Urine Yellow; Glucose Urine UA Trace (Negative); Ketones Urine 1+ (Negative); Leukocyte Esterase Urine Negative (Negative); Nitrite Urine Negative (Negative); RBC Urine Automated 0-4 /hpf (0-4); Specific Gravity Urine 1.021 (1.000-1.030); Urobilinogen Urine Negative (Negative); pH Urine >= 9.0 (4.5-7.5)
[2020-11-09 17:58] LABS: Protein Urine 1+ (Negative)
[2020-11-09] MEDS ORDERED: Nursing to Pharmacy Communication SCH (19:00)
[2020-11-09] MEDS: FAMOTIDINE 20 MG in SYRINGE 3 ML IV SCH (20:36)
[2020-11-09] MEDS: PIPERACILLIN/TAZOBACTAM 3.375 GM in DEXTROSE 5% 100 ML IV SCH (20:36)
[2020-11-10] MEDS: SODIUM CHLORIDE 0.9% 1000ML 1,000 ML IV SCH ×2 (00:30→10:28)
[2020-11-10] MEDS: PIPERACILLIN/TAZOBACTAM 3.375 GM in DEXTROSE 5% 100 ML IV SCH (04:18)
[2020-11-10] MEDS: INSULIN ASPART 100 UNITS/ML 3 ML PEN SC SCH ×3 (06:17→12:48)
[2020-11-10 08:12] LABS: Estimated Average Glucose 189 mg/dl; Hemoglobin A1C 8.2 % (4.5-5.6)
[2020-11-10] MEDS: FAMOTIDINE 20 MG in SYRINGE 3 ML IV SCH (08:43)
--- NOTE | 2020-11-10 09:03 | XRay Report ---
KUB CLINICAL HISTORY: Small bowel obstruction. COMPARISON STUDY: CT of the abdomen and pelvis November 09, 2020. FINDINGS: The tip of the nasogastric tube is within the gastric cardia. A side hole is at the level o f the distal esophagus. The tube could be advanced 4 cm. Small bowel dilatation significantly improve d since CT of November 09, 2020. IMPRESSION: 1. Significant interval improvement in small bowel dilatation since prior CT of November 09, 2020. 2. Tip of nasogastric tube projects over the gastric cardia. The tube could be advanced 4 cm. ACT 112: Negative or not required by law. Electronically signed by: Peewee Villegas M.D. 11/10/2020 9:02 AM
--- NOTE | 2020-11-10 09:36 | Surgery Progress Note ---
Date of Service November 10, 2020 Assessment & Plan (1) SBO (small bowel obstruction): improved KUB with air throughout the colon will d/c NG, start on clears has known stricture of TI, if does ok can probably be discharged on clears with outpatient follow-up with [facility] pt seen earlier today. was feeling much better. kub improved. pt adamantly wants to see his grandson graduate. if vernon clears could prob safely be d/c'd Admission and Anticipated Discharge Date Admission Date: November 09, 2020 Subjective some flatus, feels much better, no pain Physical Exam Gastrointestinal (Abdomen): Inspection/Auscultation: abdomen not distended Percussion/Palpation: abdomen soft; abdomen nontender Results & Data ([facility]) Vital Signs (Past 12 Hours) Vital Signs Temp Pulse Pulse Resp BP Pulse Ox 11/10/20 07:45 36.8 C 60 19 122/70 97 11/09/20 22:25 36.9 C 70 17 133/74 94 PG Care Time/CCT Total # of Minutes Spent Total Time Spent with Patient: Total time spent is greater than 50% in coordination of care (as documented) at patient's floor/unit and/or counseling patient: Coding Level of Care Code 22415 Subseq Hosp Care Lvl 2 Diagnoses SBO (small bowel obstruction) K56.609
[2020-11-10 09:50] LABS: Basophils # (auto) 0.01 K/uL (0-0.2); Basophils % (auto) 0.1 %; Eosinophils # (auto) 0.04 K/uL (0-0.5); Eosinophils % (auto) 0.5 %; Hematocrit (blood only) 37.5 % (42-52); Hemoglobin 12.7 g/dL (14.0-18.0); Immature Granulocytes # (auto) 0.02 K/uL (0.00-0.02); Immature Granulocytes % (auto) 0.2 %; Lymphocytes # (auto) 0.97 K/uL (1.2-3.4); Lymphocytes % (auto) 11.1 %; Mean Corpuscular Hemoglobin 31.7 pg (25-34); Mean Corpuscular Hgb Conc 33.9 g/dL (32-36); Mean Corpuscular Volume 93.5 fL (80-100); Mean Platelet Volume 9.6 fL (7.4-10.4); Monocytes # (auto) 1.22 K/uL (0.11-0.59); Neutrophils # (auto) 6.48 K/uL (1.4-6.5); Neutrophils % (auto) 74.1 %; Platelet Count 222 K/uL (130-400); RDW Coefficient of Variation 13.2 % (11.5-14.5); RDW Standard Deviation 45.2 fL (36.4-46.3); Red Blood Count 4.01 M/uL (4.7-6.1); White Blood Count 8.74 K/uL (4.8-10.8)
[2020-11-10 10:20] LABS: BUN Creatinine Ratio 12.8 (10-20); Calcium 7.6 mg/dl (8.5-10.1); Creatinine Clr Calc Pharmacy 33.3 ml/min; Est GFR (African American) 47.2 ml/min; Est GFR (Non-African American) 40.7 ml/min; Magnesium 2.8 mg/dl (1.8-2.4); Phosphorus 2.7 mg/dl (2.5-4.9); Potassium 4.7 mmol/L (3.5-5.1)
--- NOTE | 2020-11-10 11:55 | Discharge Summary ---
Date of Service November 10, 2020 Admission HPI Per Admitting Provider The patient is a 80-year-old male past medical history including small bowel obstruction, dyslipidemia, anemia, BPH, chronic osteoarthritis, diabetes mellitus with renal complications, duodenal ulcer, hypertension, mild cognitive impairment, pulmonary nodules, CKD stage III, diabetes mellitus type 2 and vitamin D deficiency. He presents with symptoms as noted above. Work-up in the emergency department included a CT scan of abdomen pelvis which showed a small bowel obstruction with transition point in the distal ileum, along with fluid- filled distended stomach. Patient had NG tube to low intermittent suction lora cindi in the ED, with some improvement in symptoms. From a dietary perspective, patient had a large amount of corn a few days ago, and ate beans the following day Principal Diagnosis SBO Discharge Exam Constitutional WD/WN, vitals as above Eyes + anicteric sclerae Neck trachea midline, no thyromegaly Respiratory normal respiratory effort, lungs clear to auscultation Cardiovascular RRR, no murmur, no edema Chest (Breasts) Chest: normal inspection of chest Gastrointestinal (Abdomen) normal bowel sounds, soft, nontender, no hepatosplenomegaly Musculoskeletal Extremities: extremities normal to inspection; no cyanosis and no clubbing Skin no rashes, warm and dry Neurologic moves all extremities and awake; no focal motor deficits Psychiatric A+Ox3, euthymic affect Lymphatic no lymphedema Discharge Data Allergies Allergy/AdvReac Type Severity Reaction Status Date / Time No Known Drug Allergies Allergy Verified 11/09/20 11:10 Consultations 11/09/20 12:19 ED Decision to Admit Stat 11/09/20 15:08 Consult General Surgery Routine Ordered Studies 11/09/20 10:39 CT abd pelvis wo con Stat Abdomen/Pelvis CT 11/09/20 10:39 CT OF THE ABDOMEN AND PELVIS WITHOUT CONTRAST CLINICAL HISTORY: abd pain, distention - h/o small bowel stricture COMPARISON STUDY: CT of the abdomen and pelvis August 23, 2015. Small bowel follow-through August 25, 2015. TECHNIQUE: Axial images of the abdomen and pelvis were obtained without IV contrast. Images were reviewed in the axial, sagittal, and coronal planes. Automated exposure control was utilized for the study. A dose lowering technique was utilized adhering to the principles of ALARA. FINDINGS: No pneumatosis, free air or portal venous gas is present. The stomach is fluid-filled and moderately distended. Evaluation of the abdomen and pelvis is suboptimal on this unenhanced exam. Unenhanced images of the liver, spleen, adrenal glands and pancreas are unremarkable. There is no biliary or pancreatic ductal dilatation. The majority of the small bowel is moderately dilated and fluid-filled. Note is made of a transition point within the distal ileum, within the right lower quadrant on axial image 308 of 461. Just proximal to the transition point, there is an apparent 1.7 cm slightly hyperdense intraluminal focus. Apparent wall thickening of the slightly more upstream small bowel is probably due to peristalsis. There is trace interloop ascites. The appendix is unremarkable. No lymphadenopathy is present. No acute fracture or suspicious lesion is identified within the visualized skeletal structures. There is no hydronephrosis. Water attenuation left renal lesions favor cysts. IMPRESSION: 1. Findings consistent with a small bowel obstruction with transition point within the distal ileum. Apparent 1.7 cm intraluminal hyperdense focus just proximal to the transition point may reflect stool or other bowel contents. Trace ascites. 2. Fluid-filled distended stomach. ACT 112: Negative or not required by law. Electronically signed by: Peewee Villegas M.D. 11/09/2020 11:30 AM KUB X-Ray 11/10/20 07:00 KUB CLINICAL HISTORY: Small bowel obstruction. COMPARISON STUDY: CT of the abdomen and pelvis November 09, 2020. FINDINGS: The tip of the nasogastric tube is within the gastric cardia. A side hole is at the level of the distal esophagus. The tube could be advanced 4 cm. Small bowel dilatation significantly improved since CT of November 09, 2020. IMPRESSION: 1. Significant interval improvement in small bowel dilatation since prior CT of November 09, 2020. 2. Tip of nasogastric tube projects over the gastric cardia. The tube could be advanced 4 cm. ACT 112: Negative or not required by law. Electronically signed by: Peewee Villegas M.D. 11/10/2020 9:02 AM Hospital Course (1) SBO (small bowel obstruction): Small bowel obstruction- Most recent was in February 2019, which resolved spontaneously This was likely brought on by dietary intake of corn and beans and inadequate hy dration Transition point ND distal ileum Has had 14-15 SBOs in lifetime has known terminal ileum stricture Had NG tube to low intermittent suction placed and by next AM was doing very well, no abd pain or distension, KUB repeated and shows resolution of obstruction, hs was passing flatus and tolerating clear liquids diet. Seen by Surgery and no intervention needed surgically Lytes all stable Stable for dc to home with recommendation for close GI f/u for endoscopic dilation of stricture as previously recommended by GI at [facility]- he will call to schedule -continue liquids diet at home until seen by GI (2) Dyslipidemia: continue statin (3) Diabetes mellitus with renal complications: continue insulin regimen at home (4) Benign enlargement of prostate: Not on any outpatient medications,no acute issues (5) Hypertension: BPs controlled continue lisinopril (6) Chronic kidney disease, stage 3 (moderate): Clinical Education Coordinator actually down to below baseline at time of discharge after receiving IVFs and holding ACEi -ok to restart ACEi on dc --Avoid nephrotoxins -renally dose meds when appropriate -follow BMP as outpt Total Time Total Time Spent Total Time Spent (In Minutes): 35 min Total Time Includes: Examination of the Patient, Discharge Planning and Medication Reconciliation Discharge Plan Discharge Items Patient Disposition: Home - Self-Care Reason For Visit: SBO Discharge Diagnosis: Small bowel obstruction Condition on Discharge: Good Activity: Resume your previous activity Exercise/Sports: Gradually increase as tolerated Non-emergency contact: Primary Care Provider and Data Processing Equipment Repairer Call non-emergency contact if: you have any medication questions, your symptoms worsen and your pain is not controlled Follow-up/Referrals: Jamila Alfred DO [Primary Care Provider] - (Please follow up within 1-2 weeks.) Brent Stover [Physician] - (Please call Dr. Stover's office to help arrange for procedure at [facility] to dilate your bowel.) Diet: Full liquid Addtl Attending Provider Instructions: Please continue on a liquids diet for now and schedule your appointment at [facility] as soon as possible to dilate your bowel at the site of the stricture/narrowing. Follow up with your PCP within 1-2 weeks as well. Pending Studies at Discharge: No Stand-Alone Forms: My [facility] Medications and DC Order Prescriptions: Continued (DME) pen needle, diabetic [Pen Needle] 31 gauge x 5/16" needle See Dose Instructions .ROUTE .MEDSUPPLY Qty: 90 RF: 1 (DME) pen needle, diabetic [BD Ultra-Fine Sheron Pen Needle] 32 gauge x 5/32" needle See Rx Instructions .ROUTE .MEDSUPPLY Qty: 300 RF: 1 (DME) blood-glucose meter [OneTouch Ultra2 Meter] kit See Dose Instructions .ROUTE .MEDSUPPLY Qty: 1 RF: 0 (DME) OneTouch Ultra Blue Test Strip Strip See Dose Instructions .ROUTE .MEDSUPPLY Qty: 100 RF: 5 magnesium hydroxide [Milk of Magnesia] 400 mg/5 mL Suspension 5 ml PO DAILY PRN (Reason: gastric upset) RF: 0 multivitamin tablet 1 tab PO QAM RF: 0 atorvastatin 10 mg tablet 10 mg PO QAM RF: 0 lisinopril 40 mg tablet 40 mg PO QAM RF: 0 Lantus Solostar U-100 Insulin 100 unit/mL (3 mL) insulin pen 40 unit SQ QAM RF: 0 cholecalciferol (vitamin D3) 2,000 unit capsule 4,000 units PO QAM RF: 0 Discharge Orders: Discharge Order (Routine); Ordered 11/10/20 Ordered By: Ariana Hernandez/Other Patient Handouts: Managing Type 2 Diabetes, A1C Admission Data Admit Date/Time: 11/09/20 12:53 Attending Provider: Ariana Melvin Admit Provider: Roverto Phillips Primary Care Provider: Jamila Alfred Other Providers: Roverto Phillips ; Viktor Leggett Coding Level of Care Code D/C Day Management >30 mins Diagnoses SBO (small bowel obstruction) K56.609 Dyslipidemia E78.5 Diabetes mellitus with renal complications E11.29 Benign enlargement of prostate N40.0 Hypertension I10 Chronic kidney disease, stage 3 (moderate) N18.3
== END 2020-11-10 13:45 | disposition home or self-care (01) | DRG 390 ==
LOC: ED 09:52 → 3N 12:53 → SUATTDRO 12:53 → 3N 14:20

== ENCOUNTER 2020-11-30 08:53 | Inpatient (IN) ==
--- NOTE | 2020-11-21 21:22 | Anesthesiology Consultation ---
Date of Service November 21, 2020 Assessment & Plan (1) Encounter for pre-operative examination: COVID Status: As of 11/20 PAT biometrics experimentalist, patient denies travel to endemic area, known exposure/sick contacts, or symptoms of COVID19. Preoperative COVID19 testing to be completed on 11/27. BSG AM DOS Chart Review Chart Review: Acceptable Risk for Surgery and Patient NOT seen in Pre Admission Testing History Surgery Operation Date: 11/30/20 08:55 Proposed Procedures p Open Ileocectomy - Viktor Leggett, Height/Weight Height: 5 ft 6.5 in Weight: 70.307 kg Allergies Allergy/AdvReac Type Severity Reaction Status Date / Time No Known Drug Allergies Allergy Verified 11/20/20 13:18 Medications Home Medications Medication Instructions Recorded Confirmed Last Taken blood-glucose meter #1 ea 02/15/19 11/16/20 Unknown pen needle, diabetic 31 gauge x #90 ea 08/30/19 11/16/20 Unknown 5/16" pen needle, diabetic 32 gauge x #300 ea 08/31/19 11/16/20 Unknown 5/32" atorvastatin 10 mg PO QAM 11/09/20 11/20/20 11/08/20 cholecalciferol (vitamin D3) 4,000 units PO QAM 11/09/20 11/20/20 11/08/20 lisinopril 40 mg PO QAM 11/09/20 11/20/20 11/08/20 magnesium hydroxide [Milk of 5 ml PO DAILY PRN 11/09/20 11/20/20 11/08/20 Magnesia] 5 ml multivitamin 1 tab PO QAM 11/09/20 11/20/20 11/08/20 insulin glargine 100 unit/mL (3 40 unit SQ QAM #30 ml 11/15/20 11/20/20 Unknown mL) subcutaneous pen cinnamon bark [Cinnamon] 500 mg PO BID 11/20/20 11/20/20 Unknown blood sugar diagnostic #100 ea 11/21/20 Unknown Past Medical History Medical History Anemia Benign enlargement of prostate Chronic kidney disease, stage 3 (moderate) doesn't follow with kidney specialist Chronic osteoarthritis Diabetes mellitus with renal complications Diverticula of colon Dyslipidemia History of duodenal ulcer Hypertension Internal hemorrhoid Mild cognitive impairment Pulmonary nodules no changes SBO (small bowel obstruction) Sleep apnea no cpap Stricture of small intestine Tubular adenoma of colon Vitamin D deficiency Past Family History Family History Uncle Bleeding ulcer Mother Bleeding ulcer Hypertension Brother Drowned Family/Other Colon cancer Father Drowned Denies family history of Ovarian cancer Prostate cancer Myocardial infarction Breast cancer Colorectal cancer Past Surgical History Surgical History H/O excision of mass (03/2016) endoscopy mucosal resection large cecal mass History of colonoscopy History of tooth extraction Status post left knee replacement (2012) Status post right knee replacement (2008) Social History Smoking Status: Former smoker Do You Dip or Chew Tobacco: No Smoking End Date: 1968 Hx Alcohol Use: No Hx Substance Use: No substance use type: does not use Lab Results Anesthesia Preop Results Results Anesthesia Widget: WBC 8.74 K/uL (4.8-10.8) 11/10/20 Hgb 12.7 g/dL (14.0-18.0) L 11/10/20 Hct 37.5 % (42-52) L 11/10/20 Plt 222 K/uL (130-400) 11/10/20 Na 137 mmol/L (136-145) 11/10/20 K 4.7 mmol/L (3.5-5.1) 11/10/20 Cl 108 mmol/L (98-107) H 11/10/20 CO2 27 mmol/L (21-32) 11/10/20 BUN 20 mg/dl (7-18) H 11/10/20 Creat 1.57 mg/dl (0.6-1.4) H 11/10/20 Glucose Level 96 mg/dl (70-99) 11/10/20 HA1c 8.2 % (4.5-5.6) H 11/09/20 Urine Color Yellow 11/09/20 Urine Appearance Clear (Clear) 11/09/20 Urine pH >= 9.0 (4.5-7.5) H 11/09/20 Urine Specific [place] 1.021 (1.000-1.030) 11/09/20 Urine Protein 1+ (Negative) H 11/09/20 Urine Glucose (UA) Trace (Negative) H 11/09/20 Urine Ketones 1+ (Negative) H 11/09/20 Urine Blood Negative (Negative) 11/09/20 Urine Nitrite Negative (Negative) 11/09/20 Urine Bilirubin Negative (Negative) 11/09/20 Urine Urobilinogen Negative (Negative) 11/09/20 Urine Leukocyte Esterase Negative (Negative) 11/09/20 Urine WBC (Auto) 1-5 /hpf (0-5) 11/09/20 Urine RBC (Auto) 0-4 /hpf (0-4) 11/09/20 Urine Hyaline Casts (Auto) 1-5 /lpf (0-5) 11/09/20 Urine Epithelial Cells (Auto) 5-10 /lpf (0-5) H 11/09/20 Urine Bacteria (Auto) Negative (Negative) 11/09/20 COVID-19 PCR NEGATIVE (Negative) 11/09/20 Lab Comments: *creatinine at/improved from baseline. Surgeon's office flagged re: elevated A1C. Testing Electrocardiogram Date: 11/17/20 Findings: + SB @ (59bpm) and + no change from (2011)
[~2020-11-30 08:53] MED LIST changes: -ATOR10TA82 PO; -INSUINJ4 SQ; +LACTATED RINGER'S 1,000 ML IV SCH; -LISI40TA PO; -PANT40TA PO; +ceFAZolin 2000MG 2,000 MG/15 ML SYR IV SCH
[2020-11-30] MEDS ORDERED: ONDANSETRON INJ 2 MG/ML 2 ML VIAL IV PRN ×2 (10:57→16:11)
[2020-11-30] MEDS ORDERED: ePHEDrine sulfate 50 MG/ML AMP IV PRN (10:57)
[2020-11-30] MEDS ORDERED: ATROPINE SULFATE 0.1 MG/ML 10ML SYR IV PRN (10:57)
[2020-11-30] MEDS ORDERED: fentaNYL citrate 100 MCG/2 ML VIAL ONE ×2 (11:02→12:57)
--- NOTE | 2020-11-30 11:32 | History & Physical Bridge Note ---
Date of Service November 30, 2020 History & Physical Bridge Note I have examined the patient, reviewed the History & Physical and in the interval since the performance of the History & Physical I have noted the following changes of clinical significance: no changes noted
[2020-11-30] MEDS ORDERED: BUPIVACAINE/EPINEPHRINE 0.5% MPF 1:200,000 30 ML VIAL ONE (11:42)
[2020-11-30] MEDS ORDERED: PROPOFOL IV EMULSION 10 MG/ML 20 ML VIAL IV ONE (12:57)
[2020-11-30] MEDS: fentaNYL citrate 100 MCG/2 ML VIAL IV PRN ×4 (13:24→13:39)
[2020-11-30] MEDS: HYDROmorphone INJ 1 MG/ML SYRINGE IV PRN ×8 (13:44→14:21)
--- NOTE | 2020-11-30 13:46 | Operative Report ---
PG Post Operative Report Pre & Post Diagnosis Operation Date: 11/30/20 10:50 Pre-Op Diagnosis: Small Bowel Stricture Post-Op Diagnosis: Small Bowel Stricture; umbilical hernia I identified the patient and participated in the time-out.: Yes Procedure Operation Date: 11/30/20 10:50 Actual Procedures p Open partial small bowel resection; repair of umbilical hernia- Viktor Leggett DO Surgeon Viktor Leggett DO General Helper jony [place] Estimated Blood Loss 10 Findings Consistent with Post-Op Diagnosis Specimens portion of distal ileum Description of Procedure After informed consent was obtained the patient was taken to the operating room and placed in supine position. After successful intubation the abdomen was shaved and sterilely prepped and draped in usual fashion. A Coronado catheter had already been placed. I began with a midline incision from above the umbilicus down to the suprapubic region with a 10 blade scalpel. This was carried down through the soft tissue using cautery. The anterior fascia was opened using cautery. Peritoneum was elevated using hemostats and incised under direct vision using a Metzenbaum scissor. Cautery was used to open the incision to both poles. Once in the abdomen we explored the right lower quadrant. Interestingly there was fat wrapping throughout the entire small bowel. The mesentery was quite thick throughout. We were able to run the bowel and noted the firm approximately 2 cm nodule about 18 to 24 inches from the ileocecal valve. There was some small bowel adhesed to the right lower quadrant we released this using Metzenbaum scissors. The firm nodule was clearly the site of partial obstruction on previous CAT scans. I therefore made a small window in the mesentery several inches distal as well as several inches proximal to the palpable lesion. We then transected through through both of these windows using TAMICA brown cartridge linear staplers. We then used a LigaSure device to take down the mesentery between the 2 staple lines and removed a portion of small bowel containing the lesion. The lesion was intraluminal was smooth hard nonmobile. There were no palpable lymphadenopathy or other evidence of any sort of metastatic process. Next we performed a [id number] anastomosis using a TAMICA purple cartridge stapler. The common enterotomy was closed in 2 layers using 3- 0 Monocryl for serosal/mucosal layer followed by 3-0 silk in Lembert fashion as a serosal layer. The mesenteric defect was closed using 2-0 Vicryl as well. The anastomosis was patent. It had good blood flow and did not appear ischemic. We irrigated the wound. No other intraluminal or small bowel lesions were noted. Cecum and appendix felt normal. We then closed the fascia using 0- looped PDS starting at either pull running them and securing them together in the midline. We incorporated repair of his umbilical hernia with our fascial closure. Soft tissue was irrigated and skin was closed using skin yue. Sterile dressing was applied. The patient was awakened extubated and transferred recovery in stable condition. My physician fitness assistant was present through the entire case. He was instrumental in exposure throughout the procedure. He assisted with the anastomosis wound closure and dressing placement. I attest to the content of the Intraoperative Record and any orders documented therein. Any exceptions are noted below.
[2020-11-30] MEDS ORDERED: HYDROmorphone INJ 1 MG/ML SYRINGE IV PRN (14:37)
[2020-11-30] MEDS ORDERED: HYDROmorphone INJ 1 MG/ML SYRINGE IV STA (14:42)
[2020-11-30] MEDS ORDERED: ACETAMINOPHEN 1,000 MG/100 ML VIAL IV STA (14:54)
[2020-11-30] MEDS ORDERED: ACETAMINOPHEN 1000 MG/100 ML IV IV ONE (14:55)
[2020-11-30] MEDS: HYDROmorphone INJ 0.5 MG/0.5 ML SYR IV PRN ×2 (14:57→15:12)
[2020-11-30 15:02] LABS: Hematocrit (blood only) 39.4 % (42-52); Hemoglobin 13.6 g/dL (14.0-18.0)
[2020-11-30] MEDS ORDERED: NALOXONE HCL 0.4 MG/1 ML VIAL/CARP IV PRN (16:11)
[2020-11-30] MEDS ORDERED: CARBOHYDRATES FOR HYPOGLYCEMIA PO PRN (16:11)
[2020-11-30] MEDS ORDERED: GLUCOSE 40% GEL 15 GM TUBE PO PRN (16:11)
[2020-11-30] MEDS ORDERED: DEXTROSE 50% 50 ML SYRINGE IV PRN (16:11)
[2020-11-30] MEDS ORDERED: GLUCOSE 10 TABS/TUBE PO PRN (16:11)
[2020-11-30] MEDS ORDERED: GLUCAGON FOR INJ 1 MG VIAL SQ PRN (16:11)
[2020-11-30] MEDS ORDERED: INSULIN ASPART 100 UNITS/ML 3 ML PEN SC SCH (16:30)
[2020-11-30] MEDS: HYDROmorphone PCA 30 MG/30 ML IV PRN (16:35)
[2020-11-30] MEDS: SODIUM CHLORIDE 0.9% 1000ML 1,000 ML IV SCH ×3 (16:35→23:59)
[2020-11-30] MEDS ORDERED: Nursing to Pharmacy Communication SCH (17:00)
[2020-11-30] MEDS: INSULIN ASPART 100 UNITS/ML 3 ML PEN SC SCH ×2 (18:20→23:55)
[2020-11-30] MEDS: ACETAMINOPHEN 1,000 MG/100 ML VIAL IV SCH (21:31)
[2020-12-01] MEDS: ACETAMINOPHEN 1,000 MG/100 ML VIAL IV SCH (05:39)
[2020-12-01] MEDS: INSULIN ASPART 100 UNITS/ML 3 ML PEN SC SCH ×4 (05:58→21:08)
--- NOTE | 2020-12-01 06:20 | Anesthesiology Progress Note ---
Date of Service December 01, 2020 Anesthesia Post Procedure Vital Signs Vital Signs: Temp Pulse Pulse Resp BP BP Pulse Ox 12/01/20 03:12 97.9 F 74 20 155/74 H 95 11/30/20 23:07 98.1 F 67 11 L 169/77 H 98 11/30/20 20:22 97.5 F L 81 14 178/70 H 95 11/30/20 17:55 97.3 F L 77 16 183/82 H 96 11/30/20 16:50 97.5 F L 77 18 165/81 H 96 11/30/20 16:25 97.3 F L 81 16 178/85 H 95 11/30/20 15:55 97.3 F L 80 16 168/81 H 98 11/30/20 15:40 97.7 F 83 15 152/80 H 98 11/30/20 15:30 84 14 157/93 H 97 11/30/20 15:20 79 21 174/89 H 97 11/30/20 15:10 86 22 194/97 H 98 11/30/20 15:00 83 16 167/99 H 97 11/30/20 14:50 91 H 26 H 176/88 H 98 11/30/20 14:40 95 H 23 176/88 H 98 11/30/20 14:30 84 16 175/91 H 98 11/30/20 14:20 81 24 172/80 H 97 11/30/20 14:10 81 14 178/89 H 98 11/30/20 14:00 81 19 191/81 H 98 11/30/20 13:50 77 17 178/84 H 98 11/30/20 13:40 79 17 180/102 H 97 11/30/20 13:30 71 12 168/85 H 99 11/30/20 13:20 80 20 182/90 H 98 11/30/20 13:10 97.2 F L 79 12 176/86 H 97 11/30/20 09:29 98.1 F 80 20 156/95 H 99 Pain Intensity Abdomen: Pain Intensity: 5 Transfer of Care Handoff Completed per policy Notes Mental Status: alert / awake / arousable and participated in evaluation Patient Amnestic to Procedure: Yes Nausea / Vomiting: adequately controlled Pain: adequately controlled Airway Patency, RR, SpO2: stable & adequate BP & HR: stable & adequate Hydration State: stable & adequate Anesthetic Complications: no major complications apparent and Pt Satisfied with anesthetic care
[2020-12-01] MEDS: SODIUM CHLORIDE 0.9% 1000ML 1,000 ML IV SCH ×4 (07:05→19:43)
[2020-12-01 07:57] LABS: Basophils # (auto) 0.01 K/uL (0-0.2); Basophils % (auto) 0.1 %; Eosinophils # (auto) 0.02 K/uL (0-0.5); Eosinophils % (auto) 0.2 %; Hemoglobin 12.2 g/dL (14.0-18.0); Immature Granulocytes # (auto) 0.02 K/uL (0.00-0.02); Immature Granulocytes % (auto) 0.2 %; Lymphocytes # (auto) 0.93 K/uL (1.2-3.4); Lymphocytes % (auto) 8.2 %; Mean Corpuscular Hemoglobin 31.1 pg (25-34); Mean Corpuscular Hgb Conc 34.9 g/dL (32-36); Mean Corpuscular Volume 89.3 fL (80-100); Mean Platelet Volume 9.2 fL (7.4-10.4); Monocytes # (auto) 0.94 K/uL (0.11-0.59); Monocytes % (auto) 8.3 %; Neutrophils # (auto) 9.39 K/uL (1.4-6.5); Platelet Count 194 K/uL (130-400); RDW Standard Deviation 42.3 fL (36.4-46.3); Red Blood Count 3.92 M/uL (4.7-6.1); White Blood Count 11.31 K/uL (4.8-10.8)
[2020-12-01] MEDS: ATORVASTATIN 10 MG TAB PO SCH (08:18)
[2020-12-01] MEDS: lisinopril 40 MG TAB PO SCH (08:18)
[2020-12-01 08:26] LABS: BUN Creatinine Ratio 10.9 (10-20); Calcium 7.8 mg/dl (8.5-10.1); Creatinine Clr Calc Pharmacy 38.8 ml/min; Est GFR (African American) 55.7 ml/min; Potassium 4.4 mmol/L (3.5-5.1)
--- NOTE | 2020-12-01 08:27 | Surgery Progress Note ---
Date of Service December 01, 2020 Assessment & Plan (1) Stricture of small intestine: Postoperative day #1. Doing as expected. Awaiting return of bowel function [facility] covering for the weekend. We'll start clear liquids but I want to go very slow with advancement. Admission and Anticipated Discharge Date Admission Date: November 30, 2020 Subjective pt seen. Still having surgical pain but much better than yesterday. No nausea Physical Exam Physical Exam: Alert. No acute distress Abdomen is soft with expected tenderness. Mild distention Results & Data ([facility]) Vital Signs (Past 12 Hours) Vital Signs Temp Pulse Pulse Resp BP BP Pulse Ox 12/01/20 07:25 36.8 C 86 16 136/72 93 12/01/20 03:12 36.6 C 74 20 155/74 H 95 11/30/20 23:07 36.7 C 67 11 L 169/77 H 98 PG Care Time/CCT Total # of Minutes Spent Total Time Spent with Patient: Total time spent is greater than 50% in coordination of care (as documented) at patient's floor/unit and/or counseling patient: Coding Level of Care Code None Diagnoses Stricture of small intestine K56.699
[2020-12-01] MEDS ORDERED: Nursing to Pharmacy Communication SCH (08:30)
[2020-12-01] MEDS ORDERED: INSULIN ASPART 100 UNITS/ML 3 ML PEN SC ONE (09:00)
[2020-12-01] MEDS ORDERED: ACETAMINOPHEN 325 MG TAB PO PRN (12:05)
--- NOTE | 2020-12-01 13:27 | Hospitalist Consultation ---
Date of Consultation December 01, 2020 Assessment & Plan (1) Weakness of right upper extremity: Seems to be most likely a primary problem with the shoulder joint itself or perhaps some weakness of the deltoid muscle. He has no neck pain and no other focal weakness or neurological deficits. I have very low suspicion for stroke, nonetheless, patient is adamantly declining to have further work-up for stroke to include brain MRI Perhaps, he is having musculoskeletal issues of the shoulder or neck due to positioning during surgery or postoperatively Advised continued observation and see if weakness persists (2) Chronic kidney disease, stage 3 (moderate): Creatinine is around baseline at 1.37 -Avoid nephrotoxins -renally dose meds when appropriate -follow BMP (3) Diabetes mellitus with renal complications: Blood sugars are fairly well controlled Continue NovoLog sliding scale insulin Can return to home insulin glargine once tolerating more p.o. Hemoglobin A1c 8.2% on most recent check, [id number] with PCP (4) Dyslipidemia: Continue atorvastatin (5) Hypertension: Blood pressures mildly elevated Continue home lisinopril (6) Stricture of small intestine: Status post small bowel resection and umbilical hernia repair as per surgery Postoperative care as per surgery team Advanced to liquids diet on 12/01 Pain control with [employer] pump IV fluids are being given with normal saline at 125 an hour (7) Benign enlargement of prostate: Not on medication for this at home Watch for urinary retention postoperatively (8) DVT prophylaxis: Lovenox SQ, SCDs Disposition-continued stay on medical/surgical floor Hospitalist service will follow along for right upper extremity weakness to see if improves May need PT/OT History of Present Illness Reason for Consultation: Right upper extremity weakness Requesting Physician: Dr. Leggett Attending Physician: Viktor Leggett, History of Present Illness This patient is an 80-year-old male with a history of recurrent SBO, DM 2, HTN, CKD stage III, BPH, dyslipidemia, who was admitted to the hospital status post small bowel resection and umbilical hernia repair by Dr. Leggett on 11/30/2020. The patient told the nurse today that ever since his surgery yesterday, he has been feeling weak in his right upper extremity and cannot raise it above his head. The hospital service was consulted to further evaluate this right upper extremity weakness. The patient denies any neck pain or shoulder pain on that side, denies any focal weakness anywhere else. Denies any numbness or tingling anywhere. He has been ambulating to the bathroom and back without difficulty. He denies headache or vision changes. He reports that he can only raise it to a certain point and then has to use his other arm to pull the arm the rest of the way up above his right shoulder. However, after he gets the arm up, he is able to keep it up in the air. The patient reports that he absolutely does not want to have any further evaluation for this and does not want to undergo an MRI of the brain to assess for stroke. He persistently states "I will be fine, this is probably just from one of the medications that you are giving me." Otherwise he denies chest pain or shortness of breath, no abdominal pain or nausea. He is passing flatus but no bowel movement yet. He is making urine. Allergies Allergy/AdvReac Type Severity Reaction Status Date / Time No Known Drug Allergies Allergy Verified 11/30/20 09:34 Home Medications Medication Instructions Recorded Confirmed Type blood-glucose meter #1 ea 02/15/19 11/16/20 History pen needle, diabetic 31 gauge x #90 ea 08/30/19 11/16/20 Rx 5/16" pen needle, diabetic 32 gauge x #300 ea 08/31/19 11/16/20 Rx 5/32" atorvastatin 10 mg PO QAM 11/09/20 11/30/20 History cholecalciferol (vitamin D3) 4,000 units PO QAM 11/09/20 11/30/20 History lisinopril 40 mg PO QAM 11/09/20 11/30/20 History magnesium hydroxide [Milk of 5 ml PO DAILY PRN 11/09/20 11/30/20 History Magnesia] multivitamin 1 tab PO QAM 11/09/20 11/30/20 History cinnamon bark [Cinnamon] 500 mg PO BID 11/20/20 11/30/20 History insulin glargine 100 unit/mL (3 40 unit SQ QAM #90 ml 11/27/20 11/30/20 Rx mL) subcutaneous pen blood sugar diagnostic #100 ea 11/28/20 Rx hydrocodone-acetaminophen 1 - 2 tab PO .q4h- q6h PRN #15 tab 12/01/20 Rx Patient History Medical History Anemia Benign enlargement of prostate Chronic kidney disease, stage 3 (moderate) doesn't follow with kidney specialist Chronic osteoarthritis Diabetes mellitus with renal complications Diverticula of colon Dyslipidemia History of duodenal ulcer Hypertension Internal hemorrhoid Mild cognitive impairment Pulmonary nodules no changes SBO (small bowel obstruction) Sleep apnea no cpap Stricture of small intestine Tubular adenoma of colon Vitamin D deficiency Surgical History H/O excision of mass (03/2016) endoscopy mucosal resection large cecal mass History of colonoscopy History of tooth extraction Status post left knee replacement (2012) Status post right knee replacement (2008) Family History Uncle Bleeding ulcer Mother Bleeding ulcer Hypertension Brother Drowned Family/Other Colon cancer Father Drowned Denies family history of Ovarian cancer Prostate cancer Myocardial infarction Breast cancer Colorectal cancer Social History Smoking Status: Former smoker Tobacco Type: Cigarettes Age Started Using Tobacco: 19; Age Quit Using Tobacco: 26; packs per day: 1; Smoking End Date: 1967; Second Hand Exposure: No; Do You Dip or Chew Tobacco: No; Tobacco Cessation Education Requested by Patient: No Hx Alcohol Use: No Hx Substance Use: No Preferred Language: Georgian Communication Ability: Effective Visual Impairment: No Limitations Hearing Ability: Normal Vehicle Care Specialist Required: No Beliefs That Will Affect Care: None marital status: Current Living Situation: Spouse Current Living Situation Comment: [employer], 1 step to enter current occupational status: retired How many Children do You have: 2 Other Information That Helps Us Care for You: No Feels Safe at Home: Yes Safety Concerns: Feels Safe At This Time Childhood Exposure to Second-Hand Smoke: No caffeine: No (Tea x 3-4 per day. Cold tea 2-3 a day. ) during the past year weight has: remained stable Dental Care, Regularly: No Physical Activity Frequency: 3-4 Times per Week Physical Activity Frequency Comment: walking Seatbelt Use: always Sunscreen Use: No Assistive Devices: None Review of Systems Review of Systems: All systems reviewed & are unremarkable except as noted in HPI & below Physical Exam Constitutional: WD/WN, vitals as above Eyes: PERRL, conjunctivae normal, anicteric sclerae EOM intact bilaterally; no anisocoria and no nystagmus ENMT: external ear and nose normal, oropharynx normal Neck: trachea midline, no thyromegaly Respiratory: normal respiratory effort, lungs clear to auscultation Cardiovascular: RRR, no murmur, no edema Chest (Breasts): Chest: normal inspection of chest Gastrointestinal (Abdomen): Inspection/Auscultation: normal bowel sounds; + abdomen abnormal to inspection (Dressing in place over incision) Percussion/Palpation: + abdomen tender (Over incision site without guarding or rebound) and abdomen soft Musculoskeletal: Extremities: extremities normal to inspection; no cyanosis and no clubbing Skin: no rashes, warm and dry Neurologic: PERRL, EOMI, accommodation nl, no face palsy, no dysarthria CN's II-XI intact bilaterally and awake 5/5 strength throughout all extremities except unable to abduct right shoulder. No pain in right shoulder with palpation. No pain or limited range of motion of right shoulder with passive abduction, however after I abducted his shoulder to 90 degrees, he has 5 out of 5 strength in the deltoid on the right Sensation intact to light touch throughout upper extremities bilaterally DTRs 2+ and symmetric in triceps, biceps, and brachioradialis bilaterally Psychiatric: A+Ox3, euthymic affect Lymphatic: no lymphedema Results & Data Results & Data ([facility]) Vital Signs (Past 12 Hours) Vital Signs Temp Pulse Pulse Resp BP BP Pulse Ox 12/01/20 07:25 36.8 C 86 16 136/72 93 12/01/20 03:12 36.6 C 74 20 155/74 H 95 Laboratory Results 12/01/20 12/01/20 12/01/20 Range/Units 20:32 17:11 12:00 WBC (4.8-10.8) K/uL RBC (4.7-6.1) M/uL Hgb (14.0-18.0) g/dL Hct (42-52) % MCV (80-100) fL MCH (25-34) pg MCHC (32-36) g/dL RDW Std Deviation (36.4-46.3) fL RDW Coeff of Patricia (11.5-14.5) % Plt Count (130-400) K/uL MPV (7.4-10.4) fL Immature Gran % (Auto) % Neut % (Auto) % Lymph % (Auto) % [place] % (Auto) % Eos % (Auto) % Baso % (Auto) % Neut # (Auto) (1.4-6.5) K/uL Lymph # (Auto) (1.2-3.4) K/uL [place] # (Auto) (0.11-0.59) K/uL Eos # (Auto) (0-0.5) K/uL Baso # (Auto) (0-0.2) K/uL Immature Gran # (Auto) (0.00-0.02) K/uL Sodium (136-145) mmol/L Potassium (3.5-5.1) mmol/L Chloride (98-107) mmol/L Carbon Dioxide (21-32) mmol/L Anion Gap (3-11) BUN (7-18) mg/dl Creatinine (0.6-1.4) mg/dl Est Cr Clr Drug Dosing ml/min Est GFR ( Amer) ml/min Est GFR (Non-Af Amer) ml/min BUN/Creatinine Ratio (10-20) Glucose (70-99) mg/dl POC Glucose 113 H 181 H 187 H (70-99) mg/dl Calcium (8.5-10.1) mg/dl 12/01/20 12/01/20 12/01/20 Range/Units 08:32 07:41 07:41 WBC 11.31 H (4.8-10.8) K/uL RBC 3.92 L (4.7-6.1) M/uL Hgb 12.2 L (14.0-18.0) g/dL Hct 35.0 L (42-52) % MCV 89.3 (80-100) fL MCH 31.1 (25-34) pg MCHC 34.9 (32-36) g/dL RDW Std Deviation 42.3 (36.4-46.3) fL RDW Coeff of Patricia 13.0 (11.5-14.5) % Plt Count 194 (130-400) K/uL MPV 9.2 (7.4-10.4) fL Immature Gran % (Auto) 0.2 % Neut % (Auto) 83.0 % Lymph % (Auto) 8.2 % [place] % (Auto) 8.3 % Eos % (Auto) 0.2 % Baso % (Auto) 0.1 % Neut # (Auto) 9.39 H (1.4-6.5) K/uL Lymph # (Auto) 0.93 L (1.2-3.4) K/uL [place] # (Auto) 0.94 H (0.11-0.59) K/uL Eos # (Auto) 0.02 (0-0.5) K/uL Baso # (Auto) 0.01 (0-0.2) K/uL Immature Gran # (Auto) 0.02 (0.00-0.02) K/uL Sodium 135 L (136-145) mmol/L Potassium 4.4 (3.5-5.1) mmol/L Chloride 103 (98-107) mmol/L Carbon Dioxide 26 (21-32) mmol/L Anion Gap 6.0 (3-11) BUN 15 (7-18) mg/dl Creatinine 1.37 (0.6-1.4) mg/dl Est Cr Clr Drug Dosing 38.8 ml/min Est GFR ( Amer) 55.7 ml/min Est GFR (Non-Af Amer) 48.0 ml/min BUN/Creatinine Ratio 10.9 (10-20) Glucose 155 H (70-99) mg/dl POC Glucose 146 H (70-99) mg/dl Calcium 7.8 L (8.5-10.1) mg/dl 12/01/20 11/30/20 Range/Units 05:35 23:38 WBC (4.8-10.8) K/uL RBC (4.7-6.1) M/uL Hgb (14.0-18.0) g/dL Hct (42-52) % MCV (80-100) fL MCH (25-34) pg MCHC (32-36) g/dL RDW Std Deviation (36.4-46.3) fL RDW Coeff of Patricia (11.5-14.5) % Plt Count (130-400) K/uL MPV (7.4-10.4) fL Immature Gran % (Auto) % Neut % (Auto) % Lymph % (Auto) % [place] % (Auto) % Eos % (Auto) % Baso % (Auto) % Neut # (Auto) (1.4-6.5) K/uL Lymph # (Auto) (1.2-3.4) K/uL [place] # (Auto) (0.11-0.59) K/uL Eos # (Auto) (0-0.5) K/uL Baso # (Auto) (0-0.2) K/uL Immature Gran # (Auto) (0.00-0.02) K/uL Sodium (136-145) mmol/L Potassium (3.5-5.1) mmol/L Chloride (98-107) mmol/L Carbon Dioxide (21-32) mmol/L Anion Gap (3-11) BUN (7-18) mg/dl Creatinine (0.6-1.4) mg/dl Est Cr Clr Drug Dosing ml/min Est GFR ( Amer) ml/min Est GFR (Non-Af Amer) ml/min BUN/Creatinine Ratio (10-20) Glucose (70-99) mg/dl POC Glucose 141 H 195 H (70-99) mg/dl Calcium (8.5-10.1) mg/dl PG Care Time/CCT Total # of Minutes Spent Total Time Spent with Patient: Total time spent is greater than 50% in coordination of care (as documented) at patient's floor/unit and/or counseling patient: Coding Level of Care Code 19105 Inpt Consult Level 3 Diagnoses Weakness of right upper extremity R29.898 Chronic kidney disease, stage 3 (moderate) N18.3 Diabetes mellitus with renal complications E11.29 Dyslipidemia E78.5 Hypertension I10 Stricture of small intestine K56.699 Benign enlargement of prostate N40.0 DVT prophylaxis Z29.9
[2020-12-01] MEDS: ENOXAPARIN INJ 40 MG/0.4 ML SYR SQ SCH (21:11)
[2020-12-02] MEDS: SODIUM CHLORIDE 0.9% 1000ML 1,000 ML IV SCH ×4 (03:00→19:13)
[2020-12-02 05:41] LABS: Basophils # (auto) 0.01 K/uL (0-0.2); Basophils % (auto) 0.1 %; Eosinophils # (auto) 0.04 K/uL (0-0.5); Eosinophils % (auto) 0.4 %; Hematocrit (blood only) 36.3 % (42-52); Hemoglobin 12.4 g/dL (14.0-18.0); Immature Granulocytes # (auto) 0.02 K/uL (0.00-0.02); Immature Granulocytes % (auto) 0.2 %; Lymphocytes # (auto) 0.98 K/uL (1.2-3.4); Lymphocytes % (auto) 8.7 %; Mean Corpuscular Hemoglobin 31.7 pg (25-34); Mean Corpuscular Hgb Conc 34.2 g/dL (32-36); Mean Corpuscular Volume 92.8 fL (80-100); Mean Platelet Volume 9.6 fL (7.4-10.4); Monocytes # (auto) 0.92 K/uL (0.11-0.59); Monocytes % (auto) 8.2 %; Neutrophils # (auto) 9.28 K/uL (1.4-6.5); Neutrophils % (auto) 82.4 %; Platelet Count 206 K/uL (130-400); RDW Coefficient of Variation 13.3 % (11.5-14.5); RDW Standard Deviation 45.3 fL (36.4-46.3); Red Blood Count 3.91 M/uL (4.7-6.1); White Blood Count 11.25 K/uL (4.8-10.8)
[2020-12-02 06:11] LABS: BUN Creatinine Ratio 9.2 (10-20); Calcium 7.7 mg/dl (8.5-10.1); Creatinine Clr Calc Pharmacy 43.3 ml/min; Est GFR (African American) 63.4 ml/min; Est GFR (Non-African American) 54.7 ml/min; Potassium 4.3 mmol/L (3.5-5.1)
[2020-12-02] MEDS: HYDROmorphone PCA 30 MG/30 ML IV PRN (07:07)
[2020-12-02] MEDS: lisinopril 40 MG TAB PO SCH (07:43)
[2020-12-02] MEDS: ATORVASTATIN 10 MG TAB PO SCH (07:43)
[2020-12-02] MEDS: INSULIN ASPART 100 UNITS/ML 3 ML PEN SC SCH ×4 (09:17→20:42)
--- NOTE | 2020-12-02 12:38 | Surgery Progress Note ---
Date of Service F/U S/P Open Ileocectomy,POD 2 pt is doing fine, no significant abdominal pain, no nausea, no vomiting, no fever, not pass gas or BM yet, December 02, 2020 Assessment & Plan Admission and Anticipated Discharge Date Admission Date: November 30, 2020 12/02/2020 12: 36PM S/P Open Ileocectomy, POD 2 wait bowel function recovery continue treatment, keep npo now, will F/U Subjective pt seen. Still having surgical pain but much better than yesterday. No nausea Physical Exam Constitutional: WD/WN, vitals as above well developed and well nourished Eyes: PERRL, conjunctivae normal, anicteric sclerae Neck: trachea midline, no thyromegaly Respiratory: normal respiratory effort, lungs clear to auscultation Cardiovascular: RRR, no murmur, no edema Gastrointestinal (Abdomen): Percussion/Palpation: + abdomen tender and abdomen soft mild tenderness at incision site, the incision intact, no redness, BS + Musculoskeletal: no cyanosis or clubbing, extremities motor strength 5/5 Neurologic: awake Psychiatric: Orientation: alert and oriented x 3 Results & Data ([facility]) Vital Signs (Past 12 Hours) Vital Signs Temp Pulse Resp BP Pulse Ox 12/02/20 10:56 37.1 C 95 H 16 146/80 H 95 12/02/20 06:57 36.8 C 94 H 16 153/80 H 96 12/02/20 03:01 37.2 C 101 H 20 169/89 H 94 Laboratory Results Abnormal lab results 12/01/20 12/01/20 12/02/20 Range/Units 17:11 20:32 05:18 WBC 11.25 H (4.8-10.8) K/uL RBC 3.91 L (4.7-6.1) M/uL Hgb 12.4 L (14.0-18.0) g/dL Hct 36.3 L (42-52) % Neut # (Auto) 9.28 H (1.4-6.5) K/uL Lymph # (Auto) 0.98 L (1.2-3.4) K/uL [place] # (Auto) 0.92 H (0.11-0.59) K/uL BUN/Creatinine Ratio (10-20) Glucose (70-99) mg/dl POC Glucose 181 H 113 H (70-99) mg/dl Calcium (8.5-10.1) mg/dl 12/02/20 12/02/20 12/02/20 Range/Units 05:18 08:01 11:57 WBC (4.8-10.8) K/uL RBC (4.7-6.1) M/uL Hgb (14.0-18.0) g/dL Hct (42-52) % Neut # (Auto) (1.4-6.5) K/uL Lymph # (Auto) (1.2-3.4) K/uL [place] # (Auto) (0.11-0.59) K/uL BUN/Creatinine Ratio 9.2 L (10-20) Glucose 171 H (70-99) mg/dl POC Glucose 180 H 161 H (70-99) mg/dl Calcium 7.7 L (8.5-10.1) mg/dl
--- NOTE | 2020-12-02 14:51 | Hospitalist Progress Note ---
Date of Service December 02, 2020 Assessment & Plan (1) Weakness of right upper extremity: * This has completely resolved. Unsure of etiology but appears to have been musculoskeletal. Self-limited and resolve. No further recommendations at this time (2) Chronic kidney disease, stage 3 (moderate): * Stable (3) Diabetes mellitus with renal complications: * Blood sugars are fairly well controlled * Continue NovoLog sliding scale insulin * Since oral intake ordered, I have ensured that it is to be no added sugar with his diet. * patient routinely take lantus 40units at night. His BS has been 160-180. Will resume lantus therapy but given only 10 units tonight given his Clear liquid diet * Can return to home insulin glargine once tolerating more p.o. * Hemoglobin A1c 8.2% on most recent check, [id number] with PCP * will remain on service to help with BS/insulin mgmt given his current clear liquid diet and likelihood for advancement (4) Dyslipidemia: * Continue atorvastatin (5) Hypertension: * Continue home lisinopril (6) Stricture of small intestine: Status post small bowel resection and umbilical hernia repair as per surgery Postoperative care as per surgery team Recommend adequate pain control, DVT prophylaxis, and dietary advancement as per primary team (7) Benign enlargement of prostate: Not on medication for this at home Patient without evidence of urinary retention (8) DVT prophylaxis: Lovenox SQ, SCDs Disposition-continued stay on medical/surgical floor Admission and Anticipated Discharge Date Admission Date: November 30, 2020 Subjective Patient seen on daily rounds today. He is POD #1 s/p Ileocectomy due to small bowel stricture and an umbilical herniorrhaphy. Medicine was on consult due to weakness in the right upper extremity. Apparently postoperatively, he was unable to actively lift his arm over his head; however, could perform this function passively. Today, he is having no mobility issues. An MRI was suggested yesterday (of head) to rule out CVA; however, patient refused. Denies any pain in the shoulder. He is on clear liquids. Reports that he is tolerating this. He denies abdominal pain. He yet has passed flatus today but claims he had flatus yesterday. Denies fevers, chills, chest pain, shortness of breath, abdominal pain, nausea or vomiting. Review of Systems Review of Systems: Denies fevers, chills, headache, nasal congestion, sore throat, cough, chest pain, shortness of breath, abdominal pain, nausea, vomiting, GI/ symptomatology. Denies right shoulder pain or decreased range of motion today Physical Exam Physical Exam: General: Resting comfortably in chair at bedside A&O X3 NAD. Does not appear ill or toxic Cardiac: RRR without M/G/R Lungs: CTA without W/R/R Abdomen: Abdomen mildly distended. Surgical dressing dry and intact. Does have normoactive BS X4. Soft and nontender in all quadrants. Extremities: Has full range of motion of the right shoulder joint/right upper extremity. Can passively and actively flex/extend at the shoulder. No tenderness noted to the shoulder joint itself. Pet Technologist strength intact symmetrical bilaterally. Results & Data Results & Data ([facility]) Vital Signs (Past 12 Hours) Vital Signs Temp Pulse Resp BP Pulse Ox 12/02/20 10:56 37.1 C 95 H 16 146/80 H 95 12/02/20 06:57 36.8 C 94 H 16 153/80 H 96 12/02/20 03:01 37.2 C 101 H 20 169/89 H 94 Laboratory Results 12/02/20 05:18 12/02/20 05:18 PG Care Time/CCT Total # of Minutes Spent Total Time Spent with Patient: Total time spent is greater than 50% in coordination of care (as documented) at patient's floor/unit and/or counseling patient: C[place] [address] Inpt Consult Level 2 Patient Type Established History Expanded Problem Focused Exam Expanded Problem Focused Medical Decision Making Moderate Complexity Diagnoses Weakness of right upper extremity R29.898 Chronic kidney disease, stage 3 (moderate) N18.3 Diabetes mellitus with renal complications E11.29 Dyslipidemia E78.5 Hypertension I10 Stricture of small intestine K56.699 Benign enlargement of prostate N40.0 DVT prophylaxis Z29.9
[2020-12-02] MEDS: ENOXAPARIN INJ 40 MG/0.4 ML SYR SQ SCH (20:41)
[2020-12-02] MEDS: INSULIN GLARGINE SOLOSTAR 100 UNITS/ML 3 ML PEN SC SCH (20:43)
[2020-12-03] MEDS: SODIUM CHLORIDE 0.9% 1000ML 1,000 ML IV SCH ×4 (03:10→20:36)
[2020-12-03 06:22] LABS: Basophils # (auto) 0.01 K/uL (0-0.2); Basophils % (auto) 0.1 %; Eosinophils # (auto) 0.15 K/uL (0-0.5); Eosinophils % (auto) 1.5 %; Hemoglobin 11.9 g/dL (14.0-18.0); Immature Granulocytes # (auto) 0.05 K/uL (0.00-0.02); Immature Granulocytes % (auto) 0.5 %; Lymphocytes # (auto) 0.64 K/uL (1.2-3.4); Lymphocytes % (auto) 6.3 %; Mean Corpuscular Hemoglobin 30.7 pg (25-34); Mean Corpuscular Volume 90.2 fL (80-100); Mean Platelet Volume 9.4 fL (7.4-10.4); Monocytes # (auto) 0.96 K/uL (0.11-0.59); Monocytes % (auto) 9.4 %; Neutrophils # (auto) 8.37 K/uL (1.4-6.5); Neutrophils % (auto) 82.2 %; Platelet Count 199 K/uL (130-400); RDW Coefficient of Variation 13.1 % (11.5-14.5); RDW Standard Deviation 42.4 fL (36.4-46.3); Red Blood Count 3.88 M/uL (4.7-6.1); White Blood Count 10.18 K/uL (4.8-10.8)
[2020-12-03 06:54] LABS: BUN Creatinine Ratio 12.3 (10-20); Calcium 7.9 mg/dl (8.5-10.1); Creatinine Clr Calc Pharmacy 52.2 ml/min; Est GFR (African American) 79.5 ml/min; Est GFR (Non-African American) 68.6 ml/min; Potassium 4.2 mmol/L (3.5-5.1)
[2020-12-03] MEDS: ATORVASTATIN 10 MG TAB PO SCH (08:30)
[2020-12-03] MEDS: lisinopril 40 MG TAB PO SCH (08:30)
[2020-12-03] MEDS: INSULIN ASPART 100 UNITS/ML 3 ML PEN SC SCH ×4 (09:31→20:40)
[2020-12-03] MEDS ORDERED: hydrALAZINE 10 MG TAB PO SCH (10:30)
--- NOTE | 2020-12-03 12:30 | Surgery Progress Note ---
Date of Service passed some gas no BM yet, no abdominal pain, tolerated clear diet, no fever, December 03, 2020 Assessment & Plan Admission and Anticipated Discharge Date Admission Date: November 30, 2020 S/P Open Ileocectomy, POD 3 wait bowel function recovery, advance diet, continue treatment, will F/U Subjective Patient seen on daily rounds today. He is POD #1 s/p Ileocectomy due to small bowel stricture and an umbilical herniorrhaphy. Medicine was on consult due to weakness in the right upper extremity. Apparently postoperatively, he was unable to actively lift his arm over his head; however, could perform this function passively. Today, he is having no mobility issues. An MRI was suggested yesterday (of head) to rule out CVA; however, patient refused. Denies any pain in the shoulder. He is on clear liquids. Reports that he is tolerating this. He denies abdominal pain. He yet has passed flatus today but claims he had flatus yesterday. Denies fevers, chills, chest pain, shortness of breath, abdominal pain, nausea or vomiting. Physical Exam Constitutional: WD/WN, vitals as above well developed and well nourished Eyes: PERRL, conjunctivae normal, anicteric sclerae Neck: trachea midline, no thyromegaly Respiratory: normal respiratory effort, lungs clear to auscultation Cardiovascular: RRR, no murmur, no edema Gastrointestinal (Abdomen): normal bowel sounds, soft, nontender, no hepatosplenomegaly Percussion/Palpation: abdomen soft the incision intact, no redness, BS + Musculoskeletal: no cyanosis or clubbing, extremities motor strength 5/5 Neurologic: awake Psychiatric: Orientation: alert and oriented x 3 Results & Data ([facility]) Vital Signs (Past 12 Hours) Vital Signs Temp Pulse Resp BP BP Pulse Ox 12/03/20 11:02 36.8 C 95 H 16 160/86 H 96 12/03/20 09:36 176/82 H 176/99 H 12/03/20 07:21 36.6 C 86 16 174/90 H 96 12/03/20 03:12 36.6 C 86 16 172/97 H 96 Laboratory Results Abnormal lab results 12/02/20 12/02/20 12/03/20 Range/Units 17:03 20:41 05:49 RBC (4.7-6.1) M/uL Hgb (14.0-18.0) g/dL Hct (42-52) % Neut # (Auto) (1.4-6.5) K/uL Lymph # (Auto) (1.2-3.4) K/uL [place] # (Auto) (0.11-0.59) K/uL Immature Gran # (Auto) (0.00-0.02) K/uL Sodium 135 L (136-145) mmol/L Glucose 143 H (70-99) mg/dl POC Glucose 145 H 153 H (70-99) mg/dl Calcium 7.9 L (8.5-10.1) mg/dl 12/03/20 12/03/20 12/03/20 Range/Units 05:49 08:00 12:04 RBC 3.88 L (4.7-6.1) M/uL Hgb 11.9 L (14.0-18.0) g/dL Hct 35.0 L (42-52) % Neut # (Auto) 8.37 H (1.4-6.5) K/uL Lymph # (Auto) 0.64 L (1.2-3.4) K/uL [place] # (Auto) 0.96 H (0.11-0.59) K/uL Immature Gran # (Auto) 0.05 H (0.00-0.02) K/uL Sodium (136-145) mmol/L Glucose (70-99) mg/dl POC Glucose 145 H 166 H (70-99) mg/dl Calcium (8.5-10.1) mg/dl
[2020-12-03] MEDS: cloNIDine HCL 0.1 MG TAB PO PRN (13:19)
--- NOTE | 2020-12-03 13:58 | Hospitalist Progress Note ---
Date of Service December 03, 2020 Assessment & Plan (1) Accelerated essential hypertension: * Does not seem to be secondary to uncontrolled pain and his pain is currently controlled * He is on lisinopril 40 mg daily * Add clonidine 0.1 mg every 6 hours as needed with parameters * Add hydralazine 10 mg twice daily with up titration as needed (2) Weakness of right upper extremity: * This has completely resolved. Unsure of etiology but appears to have been musculoskeletal. Self-limited and resolve. No further recommendations at this time (3) Diabetes mellitus with renal complications: * Blood sugars are fairly well controlled * Continue NovoLog sliding scale insulin * Continue Lantus at 10 units at bedtime with up titration as oral intake advances (4) Chronic kidney disease, stage 3 (moderate): * Stable (5) Stricture of small intestine: * Status post small bowel resection and umbilical hernia repair as per surgery * Postoperative care as per surgery team * Recommend adequate pain control, DVT prophylaxis, and dietary advancement as per primary team (lengthy D/W that dietary advancement is per primary team) (6) Dyslipidemia: * Continue atorvastatin (7) Hypertension: * Continue home lisinopril * see above (8) Benign enlargement of prostate: * Not on medication for this at home * Patient without evidence of urinary retention (9) DVT prophylaxis: Lovenox SQ, SCDs Disposition-continued stay on medical/surgical floor Admission and Anticipated Discharge Date Admission Date: November 30, 2020 Subjective Patient seen on daily rounds today. He is POD #2 s/p s/p Ileocectomy d/t small bowel stricture and umbilical herniorrhaphy. Tolerating clear liquids. Is passing flatus. No BM. Denies abd pain, N/V. Upset about his diet as he would likel something more to eat. BP has been running high (170-190 systolic). Pt is receiving his lisinopril. Denies uncontrolled pain. Blood sugars acceptable. On Lantus 10U (typically on 40U) given his clear liquid diet. No further issues with RUE. Review of Systems Review of Systems: Denies fevers, chills, headache, nasal congestion, sore throat, cough, chest pain, shortness of breath, abdominal pain, nausea, vomiting, GI/ symptomatology. Physical Exam Physical Exam: General: Resting comfortably in his hospital bed, sitting in bedside]. A&O X3 NAD. Cardiac: RRR without M/G/R Lungs: CTA without W/R/R Abdomen: Surgical dressings dry and intact. Normoactive X4. Slightly tender at the site of the incisions but no deep tenderness. Extremities: No peripheral clubbing cyanosis or edema, full range of motion of the right upper extremity. Results & Data Results & Data ([facility]) Vital Signs (Past 12 Hours) Vital Signs Temp Pulse Resp BP BP Pulse Ox 12/03/20 13:16 36.7 C 89 16 163/87 H 95 12/03/20 11:02 36.8 C 95 H 16 160/86 H 96 12/03/20 09:36 176/82 H 176/99 H 12/03/20 07:21 36.6 C 86 16 174/90 H 96 12/03/20 03:12 36.6 C 86 16 172/97 H 96 Laboratory Results 12/03/20 05:49 12/03/20 05:49 PG Care Time/CCT Total # of Minutes Spent Total Time Spent with Patient: Total time spent is greater than 50% in coordination of care (as documented) at patient's floor/unit and/or counseling patient: [place] [address] Inpt Consult Level 4 Patient Type Established History Detailed Exam Detailed Medical Decision Making Moderate Complexity Diagnoses Accelerated essential hypertension I10 Weakness of right upper extremity R29.898 Diabetes mellitus with renal complications E11.22; N18.30; Z79.4 Diabetes mellitus type: type 2 Diabetes mellitus fdc insulin use: with fdc use Diabetes mellitus complication detail: with chronic kidney disease Chronic kidney disease stage: stage 3 (moderate) Chronic kidney disease stage 3 subtype: unspecified whether 3a or 3b Chronic kidney disease, stage 3 (moderate) N18.30 Chronic kidney disease stage 3 subtype: unspecified whether 3a or 3b Stricture of small intestine K56.699 Dyslipidemia E78.5 Hypertension I10 Hypertension type: essential hypertension Benign enlargement of prostate N40.0 Lower urinary tract symptom presence: symptoms absent DVT prophylaxis Z29.9 (1) Chronic kidney disease, stage 3 (moderate) Chronic kidney disease stage 3 subtype: unspecified whether 3a or 3b Qualified Code(s): N18.30 - Chronic kidney disease, stage 3 unspecified (2) Diabetes mellitus with renal complications Diabetes mellitus type: type 2 Diabetes mellitus fdc insulin use: with fdc use Diabetes mellitus complication detail: with chronic kidney disease Chronic kidney disease stage: stage 3 (moderate) Chronic kidney disease stage 3 subtype: unspecified whether 3a or 3b Qualified Code(s): E11.22 - Type 2 diabetes mellitus with diabetic chronic kidney disease; N18.30 - Chronic kidney disease, stage 3 unspecified; Z79.4 - senior care (current) use of insulin (3) Hypertension Hypertension type: essential hypertension Qualified Code(s): I10 - Essential (primary) hypertension (4) Benign enlargement of prostate Lower urinary tract symptom presence: symptoms absent Qualified Code(s): N40.0 - Benign prostatic hyperplasia without lower urinary tract symptoms
[2020-12-03] MEDS ORDERED: hydrALAZINE HCL 20 MG/ML VIAL IV STA (18:04)
[2020-12-03] MEDS: hydrALAZINE 10 MG TAB PO SCH (20:38)
[2020-12-03] MEDS: ENOXAPARIN INJ 40 MG/0.4 ML SYR SQ SCH (20:38)
[2020-12-03] MEDS: INSULIN GLARGINE SOLOSTAR 100 UNITS/ML 3 ML PEN SC SCH (20:40)
[2020-12-04] MEDS: SODIUM CHLORIDE 0.9% 1000ML 1,000 ML IV SCH ×3 (02:48→20:07)
[2020-12-04 07:57] LABS: Basophils # (auto) 0.02 K/uL (0-0.2); Basophils % (auto) 0.2 %; Eosinophils % (auto) 3.7 %; Hematocrit (blood only) 35.5 % (42-52); Hemoglobin 12.2 g/dL (14.0-18.0); Immature Granulocytes # (auto) 0.04 K/uL (0.00-0.02); Immature Granulocytes % (auto) 0.5 %; Lymphocytes # (auto) 1.11 K/uL (1.2-3.4); Lymphocytes % (auto) 13.6 %; Mean Corpuscular Hemoglobin 30.7 pg (25-34); Mean Corpuscular Hgb Conc 34.4 g/dL (32-36); Mean Corpuscular Volume 89.4 fL (80-100); Mean Platelet Volume 9.4 fL (7.4-10.4); Monocytes % (auto) 11.1 %; Neutrophils # (auto) 5.77 K/uL (1.4-6.5); Neutrophils % (auto) 70.9 %; Platelet Count 227 K/uL (130-400); RDW Coefficient of Variation 13.1 % (11.5-14.5); RDW Standard Deviation 42.6 fL (36.4-46.3); Red Blood Count 3.97 M/uL (4.7-6.1); White Blood Count 8.14 K/uL (4.8-10.8)
[2020-12-04 08:29] LABS: Calcium 8.1 mg/dl (8.5-10.1); Creatinine Clr Calc Pharmacy 53.8 ml/min; Est GFR (African American) 82.4 ml/min; Est GFR (Non-African American) 71.1 ml/min; Magnesium 1.8 mg/dl (1.8-2.4); Potassium 3.8 mmol/L (3.5-5.1)
[2020-12-04 08:31] LABS: Albumin Globulin Ratio 0.8 (0.9-2); Bilirubin,Total 0.8 mg/dl (0.2-1); Globulin 3.8 gm/dl (2.5-4.0); Total Protein 6.8 gm/dl (6.4-8.2)
[2020-12-04] MEDS: ATORVASTATIN 10 MG TAB PO SCH (08:48)
[2020-12-04] MEDS: hydrALAZINE 10 MG TAB PO SCH ×3 (08:48→21:06)
[2020-12-04] MEDS: lisinopril 40 MG TAB PO SCH (08:49)
[2020-12-04] MEDS: INSULIN ASPART 100 UNITS/ML 3 ML PEN SC SCH ×4 (09:09→21:09)
[2020-12-04] MEDS ORDERED: oxyCODONE HCL IR 5 MG TAB (IMMEDIATE RELEASE) PO PRN (11:39)
--- NOTE | 2020-12-04 12:31 | Hospitalist Progress Note ---
Date of Service December 04, 2020 Assessment & Plan (1) Stricture of small intestine: Mr. Phan is an 80 year old male with a history of Type 2 Diabetes Mellitus, Stage 3 CKD, Hypertension, Vascular Dementia, Anemia, and a Small Bowel Stricture s/p Ileocecectomy and Umbilical Hernia Repair 11/30/20. Patient offers no complaints, his surgical pain is well controlled. He has been passing a lot of flatus, but he has not had a bowel movement yet. He is tolerating his full liquid diet. He denies any nausea, vomiting, fever, or chills. -- Tolerating full liquid diet, will likely progress tomorrow. -- Continue analgesics as ordered by Surgery. -- DVT prophylaxis with Lovenox, compression stockings, and ambulation. (2) Hypertension: Blood pressures remain elevated. -- Continue Lisinopril 40 mg daily. -- After bowel function is fully regained, consider starting Amlodipine if average BP reading is > 130/80. -- Continue Clonidine and Hydralazine on an "as needed" basis while hospitalized. -- Low sodium diet. (3) Accelerated essential hypertension: -- As outlined above. (4) Weakness of right upper extremity: Transient RUE weakness, patient refused MRI. -- Symptom has completely resolved. (5) Type 2 diabetes mellitus: -- Continue Insulin Glargine 40 unit SQ daily. -- BSG checks AC and HS. -- Novolog SSI. (6) Chronic kidney disease, stage 3 (moderate): -- Serum Creatinine today is 0.99 mg/dl. -- Stay well hydrated. -- Continue Lisinopril 40 mg daily. Admission and Anticipated Discharge Date Admission Date: November 30, 2020 Subjective Mr. Phan is an 80 year old male with a history of Type 2 Diabetes Mellitus, Stage 3 CKD, Hypertension, Vascular Dementia, Anemia, and a Small Bowel Stricture s/p Ileocecectomy and Umbilical Hernia Repair 11/30/20. Patient offers no complaints, his surgical pain is well controlled. He has been passing a lot of flatus, but he has not had a bowel movement yet. He is tolerating his full liquid diet. He denies any nausea, vomiting, fever, or chills. Review of Systems Review of Systems: All systems reviewed & are unremarkable except as noted in Subjective Physical Exam Physical Exam: GENERAL: Patient in no acute distress, sitting in a bedside chair. HEENT: Head is atraumatic, normocephalic. EOM's intact. Facies symmetric. No perioral cyanosis. NECK: No JVD. JVP is at the level of the clavicle sitting upright. Carotid up strokes are + 2 bilaterally. CHEST/LUNGS: Clear to auscultation throughout all lung powell. No wheezes, rales, or crackles. CVS: S1 and S2 are regular without obvious murmurs, gallops, or rubs. PMI is nonpalpable. No lifts, heaves, or thrills. No abdominal aortic or renal bruits. ABDOMINAL EXAM: Bowel sounds are present x 4 quadrants. No masses, organomegaly, or tenderness. EXTREMITIES: No clubbing or cyanosis. No edema. Intact radial pulses bilaterally. NEUROLOGIC EXAM: Patient is awake, alert, and oriented. Pleasant and cooperative. Answers questions appropriately. Speech is clear. Normal movement in all 4 extremities. Gait pattern was not assessed. Results & Data Results & Data ([facility]) Vital Signs (Past 12 Hours) Vital Signs Temp Pulse Pulse Resp BP Pulse Ox 12/04/20 07:55 36.8 C 83 16 166/77 H 97 12/04/20 03:49 36.5 C 88 22 180/90 H 97 Laboratory Results Laboratory Results - last 24 hr 12/03/20 12/03/20 12/04/20 17:08 20:20 07:39 WBC 8.14 RBC 3.97 L Hgb 12.2 L Hct 35.5 L MCV 89.4 MCH 30.7 MCHC 34.4 RDW Std Deviation 42.6 RDW Coeff of Patricia 13.1 Plt Count 227 MPV 9.4 Immature Gran % (Auto) 0.5 Neut % (Auto) 70.9 Lymph % (Auto) 13.6 [place] % (Auto) 11.1 Eos % (Auto) 3.7 Baso % (Auto) 0.2 Neut # (Auto) 5.77 Lymph # (Auto) 1.11 L [place] # (Auto) 0.90 H Eos # (Auto) 0.30 Baso # (Auto) 0.02 Immature Gran # (Auto) 0.04 H Sodium Potassium Chloride Carbon Dioxide Anion Gap BUN Creatinine Est Cr Clr Drug Dosing Est GFR ( Amer) Est GFR (Non-Af Amer) POC Glucose 147 H 177 H Fasting Glucose Calcium Magnesium Total Bilirubin AST ALT Alkaline Phosphatase Total Protein Albumin Globulin Albumin/Globulin Ratio 12/04/20 12/04/20 12/04/20 07:39 08:02 11:49 WBC RBC Hgb Hct MCV MCH MCHC RDW Std Deviation RDW Coeff of Patricia Plt Count MPV Immature Gran % (Auto) Neut % (Auto) Lymph % (Auto) [place] % (Auto) Eos % (Auto) Baso % (Auto) Neut # (Auto) Lymph # (Auto) [place] # (Auto) Eos # (Auto) Baso # (Auto) Immature Gran # (Auto) Sodium 136 Potassium 3.8 Chloride 107 Carbon Dioxide 22 Anion Gap 7.0 BUN 11 Creatinine 0.99 Est Cr Clr Drug Dosing 53.8 Est GFR ( Amer) 82.4 Est GFR (Non-Af Amer) 71.1 POC Glucose 132 H 122 H Fasting Glucose 122 H Calcium 8.1 L Magnesium 1.8 Total Bilirubin 0.8 AST 33 ALT 30 Alkaline Phosphatase 60 Total Protein 6.8 Albumin 3.0 L Globulin 3.8 Albumin/Globulin Ratio 0.8 L Medications Administered Medications blood-glucose meter #1 ea 02/15/19 [History Confirmed 11/16/20] pen needle, diabetic 31 gauge x 5/16" #90 ea 08/30/19 [Rx Confirmed 11/16/20] pen needle, diabetic 32 gauge x 5/32" #300 ea 08/31/19 [Rx Confirmed 11/16/20] atorvastatin 10 mg PO QAM 11/09/20 [History Confirmed 11/30/20] cholecalciferol (vitamin D3) 4,000 units PO QAM 11/09/20 [History Confirmed 11/30/20] lisinopril 40 mg PO QAM 11/09/20 [History Confirmed 11/30/20] magnesium hydroxide [Milk of Magnesia] 5 ml PO DAILY PRN 11/09/20 [History Confirmed 11/30/20] multivitamin 1 tab PO QAM 11/09/20 [History Confirmed 11/30/20] cinnamon bark [Cinnamon] 500 mg PO BID 11/20/20 [History Confirmed 11/30/20] insulin glargine 100 unit/mL (3 mL) subcutaneous pen 40 unit SQ QAM #90 ml 11/27/20 [Rx Confirmed 11/30/20] blood sugar diagnostic #100 ea 11/28/20 [Rx] hydrocodone-acetaminophen 1 - 2 tab PO .q4h- q6h PRN #15 tab 12/01/20 [Rx] Home Medications Acetaminophen (Acetaminophen 325 Mg Tab) 650 mg PO Q4H PRN PRN Reason: pain Stop: 12/31/20 12:04 Atorvastatin Calcium (Atorvastatin 10 Mg Tab) 10 mg PO QAM LEAH Stop: 12/31/20 08:59 Last Admin: 12/04/20 08:48 Dose: 10 mg Documented by: Clonidine HCl (Clonidine Hcl 0.1 Mg Tab) 0.1 mg PO Q6H PRN PRN Reason: sbp>/=160/dbp>/=100 Stop: 01/02/21 10:18 Last Admin: 12/03/20 13:19 Dose: 0.1 mg Documented by: Dextrose (Dextrose 50% 50 Ml Syringe) 25 - 50 ml IV UD PRN; Protocol PRN Reason: Hypoglycemia Protocol Stop: 12/30/20 16:10 Enoxaparin Sodium (Enoxaparin Inj 40 Mg/0.4 Ml Syr) 40 mg SQ Q24H LEAH Stop: 12/31/20 20:59 Last Admin: 12/03/20 20:38 Dose: 40 mg Documented by: Glucagon (Glucagon For Inj 1 Mg Vial) 1 mg SQ UD PRN; Protocol PRN Reason: Hypoglycemia Protocol Stop: 12/30/20 16:10 Glucose (Glucose 10 Tabs/Tube) 4 - 8 tabs PO UD PRN; Protocol PRN Reason: Hypoglycemia Protocol Stop: 12/30/20 16:10 Glucose (Glucose 40% Gel 15 Gm Tube) 15 - 30 gm PO UD PRN; Protocol PRN Reason: Hypoglycemia Protocol Stop: 12/30/20 16:10 Hydralazine HCl (Hydralazine 10 Mg Tab) 10 mg PO TID LEAH Stop: 01/02/21 20:59 Last Admin: 12/04/20 08:48 Dose: 10 mg Documented by: Sodium Chloride (Nss 1000ml) 1,000 mls @ 125 mls/hr IV .Q8H LEAH Stop: 12/30/20 16:10 Last Admin: 12/04/20 11:45 Dose: 125 mls/hr Documented by: Insulin Aspart (Insulin Aspart 100 Units/Ml 3 Ml Pen) 0 units SC ACHS [facility] Stop: 12/31/20 11:29 Last Admin: 12/04/20 12:07 Dose: Not Given Documented by: Insulin Glargine (Insulin Glargine Solostar 100 Units/Ml 3 Ml Pen) 10 units SC HS [facility] Stop: 01/01/21 20:59 Last Admin: 12/03/20 20:40 Dose: 10 units Documented by: Lisinopril (Lisinopril 40 Mg Tab) 40 mg PO QAM LEAH Stop: 12/31/20 08:59 Last Admin: 12/04/20 08:49 Dose: 40 mg Documented by: Miscellaneous (Carbohydrates For Hypoglycemia ) 15 - 30 gm PO UD PRN PRN Reason: Hypoglycemia Protocol Stop: 12/30/20 16:10 Naloxone HCl (Naloxone Hcl 0.4 Mg/1 Ml Vial/Carp) 0.1 mg IV Q5M PRN; Protocol PRN Reason: Oversedation/Resp Depression Stop: 12/14/20 16:10 Ondansetron HCl (Ondansetron Inj 2 Mg/Ml 2 Ml Vial) 4 mg IV Q4H PRN PRN Reason: Nausea And Vomiting Stop: 12/30/20 16:10 Last Admin: 11/30/20 17:26 Dose: 4 mg Documented by: Oxycodone HCl (Oxycodone Hcl Ir 5 Mg Tab (Immediate Release)) 5 mg PO Q4 PRN PRN Reason: Pain Stop: 12/18/20 11:38 PG Care Time/CCT Total # of Minutes Spent Total Time Spent with Patient: Total time spent is greater than 50% in coordination of care (as documented) at patient's floor/unit and/or counseling patient:35 Coding Level of Care Code 99326 Subseq Hosp Care Lvl 3 Diagnoses Stricture of small intestine K56.699 Hypertension I10 Hypertension type: essential hypertension Accelerated essential hypertension I10 Weakness of right upper extremity R29.898 Type 2 diabetes mellitus E11.9 Chronic kidney disease, stage 3 (moderate) N18.30 Chronic kidney disease stage 3 subtype: unspecified whether 3a or 3b Time Spent (min) 45 (1) Hypertension Hypertension type: essential hypertension Qualified Code(s): I10 - Essential (primary) hypertension (2) Chronic kidney disease, stage 3 (moderate) Chronic kidney disease stage 3 subtype: unspecified whether 3a or 3b Qualified Code(s): N18.30 - Chronic kidney disease, stage 3 unspecified
[2020-12-04] MEDS: cloNIDine HCL 0.1 MG TAB PO PRN (17:32)
[2020-12-04] MEDS: ENOXAPARIN INJ 40 MG/0.4 ML SYR SQ SCH (21:06)
[2020-12-04] MEDS: INSULIN GLARGINE SOLOSTAR 100 UNITS/ML 3 ML PEN SC SCH (21:08)
[2020-12-05] MEDS: SODIUM CHLORIDE 0.9% 1000ML 1,000 ML IV SCH (03:42)
--- NOTE | 2020-12-05 07:46 | Surgery Progress Note ---
Date of Service December 05, 2020 Assessment & Plan (1) Stricture of small intestine: POD 5 small bowel resection d/c planning as above. feeling well. +bm. vernon cereal this am. ok for d/c . instructions reviewed. Admission and Anticipated Discharge Date Admission Date: November 30, 2020 Subjective tolerating diet, bowels moving, minimal pain Physical Exam Gastrointestinal (Abdomen): Inspection/Auscultation: + abdominal surgical incision (dry); abdomen not distended Percussion/Palpation: abdomen soft Results & Data ([facility]) Vital Signs (Past 12 Hours) Vital Signs Temp Pulse Resp BP Pulse Ox 12/04/20 22:39 36.3 C L 75 17 158/78 H 98 PG Care Time/CCT Total # of Minutes Spent Total Time Spent with Patient: Total time spent is greater than 50% in coordination of care (as documented) at patient's floor/unit and/or counseling patient: Coding Level of Care Code None Diagnoses Stricture of small intestine K56.699
[2020-12-05] MEDS: ATORVASTATIN 10 MG TAB PO SCH (08:29)
[2020-12-05] MEDS: hydrALAZINE 10 MG TAB PO SCH (08:30)
[2020-12-05] MEDS: lisinopril 40 MG TAB PO SCH (08:31)
[2020-12-05] MEDS: INSULIN ASPART 100 UNITS/ML 3 ML PEN SC SCH (09:25)
--- NOTE | 2020-12-08 08:46 | Discharge Summary ---
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 Discharge Exam Constitutional WD/WN, vitals as above Gastrointestinal (Abdomen) Inspection/Auscultation: + abdominal surgical incision (clean, dry); abdomen not distended Percussion/Palpation: abdomen soft Discharge Data Allergies Allergy/AdvReac Type Severity Reaction Status Date / Time No Known Drug Allergies Allergy Verified 11/30/20 09:34 Consultations 12/01/20 13:08 Consult Hospitalist Routine Procedures Performed Operation Date: 11/30/20 10:50 Actual Procedures p Open Ileocectomy - Viktor Leggett DO Hospital Course (1) Stricture of small intestine: 80 y/o male with small bowel stricture and intermittent obstructions was taken to the OR for elective resection. He was transferred to the surgical floor. He was seen by hospitalist POD 1 for right upper extremity weakness that resolved spontaneously. He was kept on a clear liquid diet for several days and was able to advance as bowel function returned. Blood sugars were covered with SSI. Pain control was marginal at first but improved by day 3. By POD 5 he was tolerating regular diet and oral analgesics and was stable for discharge home. Total Time Total Time Spent Total Time Spent (In Minutes): 15 Discharge Plan Discharge Items Patient Disposition: Home - Self-Care Reason For Visit: Small Bowel Stricture, Diabetes Discharge Diagnosis: small bowel stricture Activity: Per Instructions section Lifting: No more than 10 pounds Bathing Comment: may shower; no soaking in tubs/pools Exercise/Sports: Wait until after follow-up appointment Driving/Machine Use: no driving while taking narcotics for pain Non-emergency contact: Surgeon Call non-emergency contact if: you have any medication questions, your symptoms worsen, your pain is not controlled, your pain is worsening, your pain is concerning for you, you have a fever, your temperature is above 101.5, your wound has increased redness, your wound has increased drainage and your wound pain has increased Follow-up/Referrals: Jamila Alfred DO [Primary Care Provider] - Viktor Leggett DO [Surgeon] - 12/13/20 11:00 am (Please call to schedule follow up in clinic within 1-2 weeks) Diet: Low Fiber Addtl Attending Provider Instructions: Pending Studies at Discharge: Yes Studies:: surgical pathology Stand-Alone Forms: My [facility] [employer], Smoking Cessation Medications and DC Order Prescriptions: New hydrocodone-acetaminophen 5-325 mg tablet 1 - 2 tab PO .q4h- q6h PRN (Reason: pain, for initial therapy, max 6 tabs per day ) Qty: 15 RF: 0 Continued (DME) pen needle, diabetic [Pen Needle] 31 gauge x 5/16" needle See Dose Instructions .ROUTE .MEDSUPPLY Qty: 90 RF: 1 (DME) pen needle, diabetic [BD Ultra-Fine Sheron Pen Needle] 32 gauge x 5/32" needle See Rx Instructions .ROUTE .MEDSUPPLY Qty: 300 RF: 1 Lantus Solostar U-100 Insulin 100 unit/mL (3 mL) insulin pen 40 unit SQ QAM Qty: 90 RF: 3 (DME) OneTouch Ultra Blue Test Strip Strip See Dose Instructions .ROUTE .MEDSUPPLY Qty: 100 RF: 5 (DME) blood-glucose meter [OneTouch Ultra2 Meter] kit See Dose Instructions .ROUTE .MEDSUPPLY Qty: 1 RF: 0 cinnamon bark [Cinnamon] 500 mg Capsule 500 mg PO BID RF: 0 magnesium hydroxide [Milk of Magnesia] 400 mg/5 mL Suspension 5 ml PO DAILY PRN (Reason: gastric upset) RF: 0 multivitamin tablet 1 tab PO QAM RF: 0 atorvastatin 10 mg tablet 10 mg PO QAM RF: 0 lisinopril 40 mg tablet 40 mg PO QAM RF: 0 cholecalciferol (vitamin D3) 2,000 unit capsule 4,000 units PO QAM RF: 0 Discharge Orders: Discharge Order (Routine); Ordered 12/05/20 Ordered By: Leanne Estrada Admission Data Admit Date/Time: 11/30/20 13:22 Attending Provider: Viktor Leggett Admit Provider: Tommy Xiao Jr Primary Care Provider: Jamila Alfred Other Providers: Elgin Vizcaino ; Leighton Jefferson Other Interventions: Discharge Summary Assessment (RN) Last Done: 12/05/20 11:23 Coding Level of Care Code D/C Day Management <30 mins Diagnoses Stricture of small intestine K56.699
== END 2020-12-05 12:00 | disposition home or self-care (01) | DRG 331 ==
LOC: ASU 08:53 → 3N 13:22